=== PATIENT | female | born 1945 | race Caucasian/White ===

== ENCOUNTER 2020-09-24 14:13 | Emergency (ER) | payer MEDICARE, MEDICAID, SELFPAY ==
[2020-09-24] VITALS (8 sets, daily range): BP systolic 100–138; BP diastolic 45–75; PULSE 62–78; RESP 18–21; TEMP 36.5–37; O2SAT 95–99; BMI 37.8
--- NOTE | 2020-09-24 15:14 | HMH.EDUTC ---
[facility] [place] Disposition Clinical Impression: Weakness Disposition: Still a Patient Condition on Discharge: Fair Referrals: Yuliana Morales APRN [Primary Care Provider] - Medical Decision Making - Donte Inquiry Pt receiving controlled substance: No Donte was queried for this patient: No Vital Signs: 09/24/20 14:30 09/24/20 15:00 09/24/20 15:37 Temperature 97.7 F 98.2 F 98.6 F Temperature Source Oral Oral Oral Pulse Rate [Right Radial] 70 62 68 Respiratory Rate 18 21 18 Blood Pressure [Right Arm] 102/60 L 122/60 100/47 L Blood Pressure Mean [Right Arm] 74 80 64 Blood Pressure Source [Right Arm] Automatic Cuff Automatic Cuff Automatic Cuff Blood Pressure Position [Right Arm] Sitting Sitting Sitting 02 Sat by Pulse Oximetry 98 97 98 Oxygen Delivery Method Room Air Room Air Room Air 09/24/20 16:20 Temperature Temperature Source Pulse Rate [Right Radial] 65 Respiratory Rate Blood Pressure [Right Arm] 110/45 L Blood Pressure Mean [Right Arm] 66 Blood Pressure Source [Right Arm] Automatic Cuff Blood Pressure Position [Right Arm] Sitting 02 Sat by Pulse Oximetry 95 Oxygen Delivery Method Room Air - Lab Data Lab Results 09/24/20 15:45: VBG pH 7.30 L, VBG pCO2 53.6 H, VBG pO2 31.3, VBG HCO3 26.0, VBG Total CO2 27.7 H, VBG O2 Saturation 56.2, VBG Base Excess -0.3 09/24/20 16:03: WBC 10.1, RBC 4.49, Hgb 12.7, Hct 38.9, MCV 86.6, MCH 28.2, MCHC 32.5, RDW 13.7, Plt Count 352, MPV 8.2, Neut % (Auto) 67.8, Lymph % (Auto) 24.8, [place] % (Auto) 5.2, Eos % (Auto) 1.8, Baso % (Auto) 0.3, Neut # (Auto) 6.8, Lymph # (Auto) 2.5, [place] # (Auto) 0.5, Eos # (Auto) 0.2, Baso # (Auto) 0.0 09/24/20 16:03: Sodium 138, Potassium 4.4, Chloride 103, Carbon Dioxide 25, Anion Gap 14.4, BUN 22 H, Creatinine 0.70, Estimated Creat Clear 79, Estimated GFR 82, Est GFR ( Amer) 99, Glucose 108 H, Calcium 9.8, Total Bilirubin 0.5, AST 67 H, ALT 29, Alkaline Phosphatase 85, Total Protein 8.0, Albumin 4.2, Globulin 3.8 H, Albumin/Globulin Ratio 1.1 09/24/20 16:03: Lipase 110 09/24/20 16:03: SARS-CoV-2 IgG Ab (Rapid) Negative, SARS-CoV-2 IgM Ab (Rapid) Negative Result diagrams: 09/24/20 16:03 09/24/20 16:03 Orders (Tests/Meds): ED MEDICATIONS Discontinued Medications Generic Name Dose Route Start Last Admin Trade Name Freq PRN Reason Stop Dose Admin Sodium Chloride 1,000 mls @ 999 mls/hr 09/24/20 15:45 09/24/20 16:10 Sod Chlor 0.9% 1000ml Bag IV 09/24/20 16:45 999 mls/hr .Q1H1M BRIGHT Administration ORDERS Category Date Time Status CXR --portable [XR chest portable] Stat Exams 09/24/20 15:45 Taken Lactic Acid Stat Lab 09/24/20 15:44 Ordered UA [Urinalysis and Microscopic] Stat Lab 09/24/20 15:45 Ordered Medical Decision Narrative: Patient advised that her PCP had sent her to the ED for further evaluation, Spoke with Yuliana Morales and she advised that she wanted patient seen in the ED, states that patient has extensive Cardiac history and she wanted her to go the ED for further work up and evaluation. States that patient has been feeling weak and off for several days which is not her normal and has several heart blockages along with extensive cardiac history that is followed by [facility] in [place] States that she was seen in the Office yesterday and tried to transfer her to the ED then but she refused to go and today her blood pressure dropped multiple times at home and patient was feeling weak and off so she again advised the patient to go to the ED Patient was a triage for decision, called ED and advised them that patient was sent to ED by the PCP and wanted her seen in ED Patient moved back to ED room 11 [facility] [place] HPI - General Chief complaint: Weakness Stated complaint: back pain, feels bad in general Time Seen by Provider: 09/24/20 15:14 Mode of Arrival: Ambulatory Limitations: No Limitations Description of Symptoms (Recalled from Triage Doc. by RN): Weakness - History of Present Illness Provide
--- NOTE | 2020-09-24 15:45 | XR_ITS ---
PROCEDURE: XR CHEST PORTABLE CLINICAL HISTORY: cough COMPARISON: No exams were available for comparison FINDINGS: The cardiomediastinal silhouette and pulmonary vascularity are within normal limits. Patchy density is present in the right perihilar region may be due to an area of summation artifact or patchy infiltrate. No acute bony abnormalities. IMPRESSION: Possible patchy perihilar infiltrate on the right Dictated by: Kenji Infante MD 09/24/2020 16:51 Kenji Infante MD in [place] 09/24/2020 16:51
--- NOTE | 2020-09-24 15:46 | HMH.EDGENADL ---
ED Disposition Clinical Impression: Weakness, Viral syndrome Disposition: Home, Self-Care Condition on Discharge: Fair Instructions: DI for Viral Syndrome Additional Instructions: Please take all medications as prescribed. Follow-up with your primary care physician in 24 to 48 hours. Return to the emergency department for any new or worsening symptoms. Referrals: Yuliana Morales APRN [Primary Care Provider] - Time of Disposition: 18:09 - Critical Care Critical Care Time: No Attestation: On 09/24/20, the high probability of a clinically significant, sudden or life threatening deterioration of the following system(s) required my full and direct attention, intervention and personal management. The time I documented below is in addition to time spent performing reported procedures but includes the following listed in this critical care notation. Medical Decision Making - Medical Records Medical records reviewed: Yes: I reviewed the patient's medical records. - Donte Inquiry Pt receiving controlled substance: No Vital Signs: 09/24/20 14:30 09/24/20 15:00 09/24/20 15:37 Temperature 97.7 F 98.2 F 98.6 F Temperature Source Oral Oral Oral Pulse Rate [Right Radial] 70 62 68 Respiratory Rate 18 21 18 Blood Pressure [Right Arm] 102/60 L 122/60 100/47 L Blood Pressure Mean [Right Arm] 74 80 64 Blood Pressure Source [Right Arm] Automatic Cuff Automatic Cuff Automatic Cuff Blood Pressure Position [Right Arm] Sitting Sitting Sitting 02 Sat by Pulse Oximetry 98 97 98 Oxygen Delivery Method Room Air Room Air Room Air 09/24/20 16:20 09/24/20 17:46 09/24/20 18:07 Temperature Temperature Source Pulse Rate [Right Radial] 65 66 68 Respiratory Rate 18 Blood Pressure [Right Arm] 110/45 L 120/64 121/67 Blood Pressure Mean [Right Arm] 66 82 85 Blood Pressure Source [Right Arm] Automatic Cuff Automatic Cuff Automatic Cuff Blood Pressure Position [Right Arm] Sitting Sitting Sitting 02 Sat by Pulse Oximetry 95 99 97 Oxygen Delivery Method Room Air Room Air Room Air 09/24/20 18:39 Temperature Temperature Source Pulse Rate [Right Radial] 65 Respiratory Rate Blood Pressure [Right Arm] 116/51 L Blood Pressure Mean [Right Arm] 72 Blood Pressure Source [Right Arm] Automatic Cuff Blood Pressure Position [Right Arm] Sitting 02 Sat by Pulse Oximetry 97 Oxygen Delivery Method Room Air - Lab Data Lab Results 09/24/20 15:45: VBG pH 7.30 L, VBG pCO2 53.6 H, VBG pO2 31.3, VBG HCO3 26.0, VBG Total CO2 27.7 H, VBG O2 Saturation 56.2, VBG Base Excess -0.3 09/24/20 16:03: WBC 10.1, RBC 4.49, Hgb 12.7, Hct 38.9, MCV 86.6, MCH 28.2, MCHC 32.5, RDW 13.7, Plt Count 352, MPV 8.2, Neut % (Auto) 67.8, Lymph % (Auto) 24.8, [place] % (Auto) 5.2, Eos % (Auto) 1.8, Baso % (Auto) 0.3, Neut # (Auto) 6.8, Lymph # (Auto) 2.5, [place] # (Auto) 0.5, Eos # (Auto) 0.2, Baso # (Auto) 0.0 09/24/20 16:03: Sodium 138, Potassium 4.4, Chloride 103, Carbon Dioxide 25, Anion Gap 14.4, BUN 22 H, Creatinine 0.70, Estimated Creat Clear 79, Estimated GFR 82, Est GFR ( Amer) 99, Glucose 108 H, Calcium 9.8, Total Bilirubin 0.5, AST 67 H, ALT 29, Alkaline Phosphatase 85, Total Protein 8.0, Albumin 4.2, Globulin 3.8 H, Albumin/Globulin Ratio 1.1 09/24/20 16:03: Lipase 110 09/24/20 16:03: SARS-CoV-2 IgG Ab (Rapid) Negative, SARS-CoV-2 IgM Ab (Rapid) Negative 09/24/20 17:11: Urine Color Yellow, Urine Appearance Sl cloudy, Urine pH 5.5, Ur Specific [place] 1.015, Urine Protein Negative, Urine Glucose (UA) Negative, Urine Ketones Negative, Urine Blood Negative, Urine Nitrate Positive, Urine Bilirubin Negative, Urine Urobilinogen 0.2, Ur Leukocyte Esterase Negative, Urine WBC 3-5, Ur Squamous Epith Cells 3-5, Urine Bacteria 4+ Result diagrams: 09/24/20 16:03 09/24/20 16:03 Orders (Tests/Meds): ED MEDICATIONS Discontinued Medications Generic Name Dose Route Start Last Admin Trade Name Freq PRN Reason Stop Dose Admin Sodium Chloride 1,000 mls @ 999 mls
[2020-09-24 16:23] LABS: Basophils % 0.3 % (0.1-2.0); Eosinophils # 0.2 K/mm3 (0.0-0.4); Eosinophils % 1.8 % (0.1-12.0); Hematocrit 38.9 % (37.0-47.0); Hemoglobin 12.7 g/dL (12.2-16.2); Lymphocytes # 2.5 K/mm3 (0.7-4.5); Lymphocytes % 24.8 % (10-50); Mean Corpuscular HGB Conc 32.5 g/dL (31.8-35.4); Mean Corpuscular Hemoglobin 28.2 pg (27.0-31.2); Mean Corpuscular Volume 86.6 fl (81-99); Mean Platelet Volume 8.2 fl (7.4-10.4); Monocytes # 0.5 K/mm3 (0.1-1.0); Monocytes % 5.2 % (1.7-9.3); Neutrophils # 6.8 K/mm3 (1.8-7.8); Neutrophils % 67.8 % (37.0-80.0); Platelet Count 352 K/mm3 (142-424); Red Blood Count 4.49 M/mm3 (4.20-5.40); Red Cell Distribution Width 13.7 % (11.5-17.5); White Blood Count 10.1 K/mm3 (4.8-10.8)
[2020-09-24 16:34] LABS: Alanine Aminotransferase 29 U/L (12-78); Albumin Level 4.2 g/dl (3.5-5.0); Albumin/Globulin Ratio 1.1 (1.1-1.8); Alkaline Phosphatase 85 U/L (38-126); Anion Gap 14.4 mEq/L (5-15); Aspartate Amino Transferase 67 U/L (14-36); Bilirubin,Total 0.5 mg/dl (0.2-1.3); Blood Urea Nitrogen 22 mg/dl (7-17); Calcium 9.8 mg/dl (8.4-10.2); Carbon Dioxide 25 mmol/L (22.0-30.0); Chloride 103 mmol/L (98-107); Creatinine Clearance Estimated 79 mL/min (50-200); Estimated Glomerular Filt Rate 82 ml/min (>60); GFR (African American) 99 ML/MIN (>60); Globulin 3.8 g/dL (1.3-3.2); Glucose 108 mg/dl (74-100); Lipase 110 U/L (23-300); Potassium 4.4 mmoL/L (3.5-5.1); Sodium 138 mmol/L (136-145)
[2020-09-24 16:35] LABS: VBG Base Excess -0.3 mmol/L (-2.4-2.3); VBG Oxygen Saturation 56.2 % (50-70); VBG PO2 31.3 mmol/L (28-40); VBG Total CO2 27.7 mmol/L (23-27)
[2020-09-24 16:37] LABS: VBG PCO2 53.6 mmol/L (35-51)
[2020-09-24 16:47] LABS: Coronavirus 19 IgG Antibody Negative (Negative); Coronavirus 19 IgM Antibody Negative (Negative)
[2020-09-24 17:50] LABS: Microscopic, Urine URINE MICROSCOPIC (MICROSCOPIC)
[2020-09-24 18:03] LABS: Appearance,Urine SL CLOUDY (Clear); Bilirubin,Urine Negative (Negative); Blood, Urine Negative (Negative); Color,Urine YELLOW (Yellow); Glucose,Urine (UA) Negative (Negative); Ketones,Urine Negative (Negative); Leukocyte Esterase,Urine Negative (Negative); Nitrate,Urine POSITIVE (Negative); PH,Urine 5.5 (5.0-8.5); Protein,Urine Negative (Negative); Specific Gravity, Urine 1.015 (1.005-1.030); Urobilinogen,Urine 0.2 EU/dl (0.2)
--- NOTE | 2020-09-24 18:07 | ECG_ITS ---
APPROVED REPORT Exam: Resting ECG HR:72 bpm ECG Measurements Heart Rate 72 AXES QRSd 102 QRS -15 QT 416 T 46 QTc 455 Conclusion Atrial fibrillation Minimal voltage criteria for LVH, may be normal variant Abnormal ECG Electronically signed by : Tomer Vaughn, 09/25/2020 07:16:59
[2020-09-24 18:17] LABS: Bacteria,Urine 4+ /lpf
== END 2020-09-24 18:59 | disposition home or self-care (01) ==
LOC: ER 14:30 → UTC 14:31 → ER 15:31
PROVIDERS: Emergency Medicine; Emergency Provider Nurse Practitioner; PCP Nurse Practitioner Family
DX: B34.9 Viral infection, unspecified (principal); I48.91 Unspecified atrial fibrillation; I10 Essential (primary) hypertension; E11.65 Type 2 diabetes mellitus with hyperglycemia; Z01.84 Encounter for antibody response examination; Z88.0 Allergy status to penicillin; Z79.899 Other long term (current) drug therapy
CPT/HCPCS: 71045; 80053; 81001; 82803; 83690; 85025; 86328; 87086; 87088; 87186; 93005; 96365; 99283

== ENCOUNTER 2020-12-24 10:29 | Emergency (ER) | payer MEDICARE, MEDICAID, SELFPAY ==
[2020-12-24 10:35] VITALS: BP 103/66; PULSE 75; O2SAT 96
--- NOTE | 2020-12-24 10:38 | CA_ITS ---
APPROVED REPORT Bilateral Lower Extremity Venous Study for Customer Service Coordinator: MARÍA augustin,MICHELLES Indications calf pain, foot pain Risk Factors Obesity Vein Imaging CFV (L): compressive, spontaneous, phasic, augmentation FEM (L): compressive, spontaneous, phasic, augmentation POP (L): compressive, spontaneous, phasic, augmentation PTV (L): compressive, spontaneous, phasic, augmentation GSV (L): compressive, spontaneous, phasic, augmentation SSV (L): compressive, spontaneous, phasic, augmentation Peroneals (L):compressive, spontaneous, phasic, augmentation GAS (L): compressive, spontaneous, phasic, augmentation Findings Color flow duplex demonstrates no evidence of DVT of the following left lower extremity Veins:Common Femoral Vein, Femoral Vein, Popliteal Vein, Posterior Tibial Veins, Peroneal Veins. Conclusion Color flow duplex demonstrates no evidence of DVT of the following left lower extremity Veins:Common Femoral Vein, Femoral Vein, Popliteal Vein, Posterior Tibial Veins, Peroneal Veins. Electronically signed by : Kenji Infante MD 12/24/2020 16:40:01
[2020-12-24 10:45] VITALS: RESP 14; TEMP 36.9; O2SAT 97; BMI 39.4
--- NOTE | 2020-12-24 10:45 | CT_ITS ---
Procedure: CT ANGIO ABDOMEN/FEMORAL CLINICAL HISTORY: pain, cold left foot Left foot pain swelling redness and cold to COMPARISON: No exams were available for comparison TECHNIQUE: IV Contrast: 100ml Isovue 370 Axial images obtained with sagittal and coronal reformats. All CT scans at the facility use one or more dose reduction, viz: automated exposure control, ma/kV adjustment per patient size (including targeted exams where dose is matched to indication, i.e. head), or iterative reconstruction technique. FINDINGS: Abdominal aorta and branches: Atherosclerotic changes the celiac artery and its branches as well as the SMA. At least 50 percent stenosis of the ostium of the right renal artery. There is a circum aortic left renal vein. No evidence of aortic aneurysm. There is mild dilatation of the right common iliac artery at 1.5 cm. No significant iliac artery stenosis. Lower extremity runoff: Medial calcinosis of the common femoral and femoral arteries on both sides. No significant stenotic lesions evident. The lower extremities distal to the popliteal arteries with not well opacified on the initial run. Delayed images were obtained through this area showing better but not optimal opacification. Dense calcific plaque is present in the right anterior tibial artery with occlusion of the mid aspect of the right anterior tib. The peroneal and posterior tibial artery are patent to the ankle on the right. On the left side there is occlusion of the proximal aspect of the anterior tib. The peroneal and posterior tibial artery are patent to the ankle. The feet arches and distal digital arteries are not opacified. There is an indeterminate 2.4 cm area of enhancement in the mid aspect of the right hepatic lobe series 4, image 15-19. Pancreatic atrophy is noted. There is severe calcification of the splenic and hepatic arteries. Senescent calcifications noted of the uterus. Fatty infiltration noted involving the muscles of the lower extremities IMPRESSION: 1. No evidence of high-grade stenosis, occlusion or thrombus involving the aorta, iliac arteries, common femoral arteries, femoral or popliteal arteries. 2. Poor opacification of the runoff vessels below the knee. There is occlusion of the anterior tibial arteries on both sides. The peroneal and posterior tibial arteries are patent to the ankle. The vascular arches of the feet are not opacified possibly due to the slow flow within the lower extremities.. Dictated by: Kenji Infante MD 12/24/2020 14:00 Kenji Infante MD in [place] 12/24/2020 14:00
--- NOTE | 2020-12-24 10:46 | HMH.EDGENADL ---
ED Disposition Clinical Impression: Peripheral arterial disease Disposition: Home, Self-Care Condition on Discharge: Fair Instructions: DI for Peripheral Vascular (Arterial) Disease Additional Instructions: You have been evaluated for foot pain, diagnosed with peripheral vascular disease. You have stenosis and occlusion of multiple vessels in both of your lower legs. There does not appear to be one large blockage. It is very important to continue taking Plavix and other medications. Follow-up with a vascular surgeon as soon as available. Follow-up with your primary care doctor within 24 to 48 hours. Scheduling for [facility] [phone] Will need to bring copy of the disk for the CT performed today. Call Psych[facility] radiology for a copy. Return to the emergency department at once if you have any new or worsening pain, cold sensation in your feet, color changes of your toes, any other concerns Referrals: Yuliana Morales APRN [Primary Care Provider] - Time of Disposition: 14:15 - Critical Care Critical Care Time: No Attestation: On 12/24/20, the high probability of a clinically significant, sudden or life threatening deterioration of the following system(s) required my full and direct attention, intervention and personal management. The time I documented below is in addition to time spent performing reported procedures but includes the following listed in this critical care notation. Medical Decision Making - Medical Records Medical records reviewed: Yes: I reviewed the patient's medical records. - Donte Inquiry Pt receiving controlled substance: No Vital Signs: 12/24/20 10:35 12/24/20 10:45 12/24/20 11:01 Temperature 98.4 F Temperature Source Oral Pulse Rate 75 80 Respiratory Rate 14 Blood Pressure 103/66 L 119/68 Blood Pressure Mean 88 85 Blood Pressure Source Blood Pressure Position 02 Sat by Pulse Oximetry 96 97 96 Oxygen Delivery Method Room Air 12/24/20 11:39 Temperature Temperature Source Pulse Rate 81 Respiratory Rate 20 Blood Pressure 163/76 H Blood Pressure Mean 88 Blood Pressure Source Automatic Cuff Blood Pressure Position Sitting 02 Sat by Pulse Oximetry 97 Oxygen Delivery Method Room Air - Lab Data Lab Results 12/24/20 12:10: WBC 9.6, RBC 4.67, Hgb 12.3, Hct 38.7, MCV 83.0, MCH 26.3 L, MCHC 31.7 L, RDW 15.0, Plt Count 315, MPV 7.7, Neut % (Auto) 65.0, Lymph % (Auto) 27.5, [place] % (Auto) 4.5, Eos % (Auto) 2.5, Baso % (Auto) 0.5, Neut # (Auto) 6.3, Lymph # (Auto) 2.7, [place] # (Auto) 0.4, Eos # (Auto) 0.2, Baso # (Auto) 0.1 12/24/20 12:10: PT 14.0 H, INR 1.20 H 12/24/20 12:10: Sodium 139, Potassium 4.1, Chloride 105, Carbon Dioxide 25, Anion Gap 13.1, BUN 12, Creatinine 0.60, Estimated Creat Clear 83, Estimated GFR 98, Est GFR ( Amer) 119, Glucose 139 H, Calcium 9.7, Total Bilirubin 0.3, AST 51 H, ALT 22, Alkaline Phosphatase 96, Total Protein 8.3 H, Albumin 4.5, Globulin 3.8 H, Albumin/Globulin Ratio 1.2 12/24/20 13:30: Lactate 0.8 Result diagrams: 12/24/20 12:10 12/24/20 12:10 Orders (Tests/Meds): ED MEDICATIONS Discontinued Medications Generic Name Dose Route Start Last Admin Trade Name Freq PRN Reason Stop Dose Admin Iopamidol 100 ml 12/24/20 13:25 12/24/20 13:27 Iopamidol-370 (76%);100ml Bottle IV 12/24/20 13:26 100 ml ONCE ONE Administration Iopamidol 20 ml 12/24/20 13:25 12/24/20 13:27 Iopamidol-370 (76%); 50ml Vial IV 12/24/20 13:26 20 ml ONCE ONE Administration Sodium Chloride 50 ml 12/24/20 13:25 12/24/20 13:26 0.9 % Sodium Chloride 50 Ml Vial IV 12/24/20 13:26 50 ml ONCE ONE Administration Sodium Chloride 10 ml 12/24/20 13:25 12/24/20 13:27 Sodium Chloride 0.9% 10ml Syr (Rad Only) IV 12/24/20 13:26 10 ml ONCE ONE Administration Sodium Chloride 50 ml 12/24/20 13:26 12/24/20 13:27 0.9 % Sodium Chloride 50 Ml Vial IV 12/24/20 13:27 50 ml ONCE O
[2020-12-24 11:01] VITALS: BP 119/68; PULSE 80; O2SAT 96
--- NOTE | 2020-12-24 11:16 | PC.NURSE ---
pt to rad.
--- NOTE | 2020-12-24 11:22 | PC.NURSE ---
pt returning from rad.
[2020-12-24 11:39] VITALS: BP 163/76; PULSE 78; PULSE 81; RESP 20; O2SAT 96; O2SAT 97
--- NOTE | 2020-12-24 12:11 | PC.NURSE ---
20G IV placed in LAC, labs drawn at this time.
[2020-12-24 12:22] LABS: Basophils # 0.1 K/mm3 (0-0.2); Basophils % 0.5 % (0.1-2.0); Eosinophils # 0.2 K/mm3 (0.0-0.4); Eosinophils % 2.5 % (0.1-12.0); Hematocrit 38.7 % (37.0-47.0); Hemoglobin 12.3 g/dL (12.2-16.2); Lymphocytes # 2.7 K/mm3 (0.7-4.5); Lymphocytes % 27.5 % (10-50); Mean Corpuscular HGB Conc 31.7 g/dL (31.8-35.4); Mean Corpuscular Hemoglobin 26.3 pg (27.0-31.2); Mean Platelet Volume 7.7 fl (7.4-10.4); Monocytes # 0.4 K/mm3 (0.1-1.0); Monocytes % 4.5 % (1.7-9.3); Neutrophils # 6.3 K/mm3 (1.8-7.8); Platelet Count 315 K/mm3 (142-424); Red Blood Count 4.67 M/mm3 (4.20-5.40); White Blood Count 9.6 K/mm3 (4.8-10.8)
[2020-12-24 12:42] LABS: Alanine Aminotransferase 22 U/L (12-78); Albumin Level 4.5 g/dl (3.5-5.0); Albumin/Globulin Ratio 1.2 (1.1-1.8); Alkaline Phosphatase 96 U/L (38-126); Anion Gap 13.1 mEq/L (5-15); Aspartate Amino Transferase 51 U/L (14-36); Bilirubin,Total 0.3 mg/dl (0.2-1.3); Blood Urea Nitrogen 12 mg/dl (7-17); Calcium 9.7 mg/dl (8.4-10.2); Carbon Dioxide 25 mmol/L (22.0-30.0); Chloride 105 mmol/L (98-107); Creatinine Clearance Estimated 83 mL/min (50-200); Estimated Glomerular Filt Rate 98 ml/min (>60); GFR (African American) 119 ML/MIN (>60); Globulin 3.8 g/dL (1.3-3.2); Glucose 139 mg/dl (74-100); Potassium 4.1 mmoL/L (3.5-5.1); Sodium 139 mmol/L (136-145); Total Protein,Serum 8.3 g/dl (6.3-8.2)
--- NOTE | 2020-12-24 13:08 | PC.NURSE ---
pt gone to rad at this time.
--- NOTE | 2020-12-24 13:46 | PC.NURSE ---
MD at bedside updating patient on current results.
[2020-12-24 13:52] LABS: Lactic Acid 0.8 mmol/L (0.7-2.1)
[2020-12-24 15:02] VITALS: BP 157/71; PULSE 76; RESP 18; TEMP 37; O2SAT 96
== END 2020-12-24 15:03 | disposition home or self-care (01) ==
PROVIDERS: Emergency Provider Emergency Medicine; PCP Nurse Practitioner Family
DX: I73.89 Other specified peripheral vascular diseases (principal); R09.89 Other specified symptoms and signs involving the circulatory and respiratory systems; I25.10 Atherosclerotic heart disease of native coronary artery without angina pectoris; I10 Essential (primary) hypertension; E11.40 Type 2 diabetes mellitus with diabetic neuropathy, unspecified; I48.91 Unspecified atrial fibrillation; Z88.0 Allergy status to penicillin; Z79.899 Other long term (current) drug therapy; E78.5 Hyperlipidemia, unspecified
CPT/HCPCS: 75635; 80053; 83605; 85025; 85610; 93971; 99282; Q9967

== ENCOUNTER 2021-07-17 09:48 | Emergency (ER) | payer MEDICARE, MEDICAID, SELFPAY ==
[2021-07-17 09:50] VITALS: BP 126/96; PULSE 93; RESP 14; TEMP 36.8; O2SAT 98; BMI 37.8
--- NOTE | 2021-07-17 10:08 | HMH.EDGENADL ---
ED Disposition Clinical Impression: Abrasion Contusion Qualifiers: Encounter type: initial encounter Contusion area: lower leg Laterality: right Qualified Code(s): S80.11XA - Contusion of right lower leg, initial encounter Disposition: Home, Self-Care Condition on Discharge: Good Additional Instructions: Home medications as directed. Follow-up PCP 3 to 4 days. Return to emergency room for chest pain, shortness of breath, headache, confusion. Referrals: Yuliana Morales APRN [Primary Care Provider] - 3 days Time of Disposition: 10:11 - Critical Care Critical Care Time: No Attestation: On 07/17/21, the high probability of a clinically significant, sudden or life threatening deterioration of the following system(s) required my full and direct attention, intervention and personal management. The time I documented below is in addition to time spent performing reported procedures but includes the following listed in this critical care notation. Medical Decision Making - Medical Records Medical records reviewed: Yes: I reviewed the patient's medical records. - Donte Inquiry Pt receiving controlled substance: No Medical Decision Narrative: Patient evaluated out of family concern for possible DVT. Patient in no acute distress initial evaluation. She is been ambulatory without difficulty since the fall. She denies head strike or LOC. All the patient's wounds are superficial. Discussed clinical signs and symptoms of DVT. Patient has none of those at this time. She is appropriate and stable for discharge home. General Adult HPI - General Stated complaint: AO 1027 fall, left knee and right leg pain Time Seen by Provider: 07/17/21 10:08 Mode of Arrival: Ambulatory - History of Present Illness HPI narrative: 76yo F with past medical history of diabetes presents emergency department secondary to a fall yesterday. Patient reports her daughter is concerned for possible blood clots. Patient reports she has severe neuropathy and did not lift her leg high enough going up the stairs. She fell and has injuries to her right mid tibia and her left knee. She is been ambulatory since that time without difficulty. She denies history of blood clot. She reports taking multiple blood thinning medications as prescribed by her doctor. - Related Data Home Medications Medication Instructions Recorded Confirmed atorvastatin 40 mg tablet 40 mg PO tab 05/30/20 05/30/20 clopidogrel 75 mg tablet 75 mg PO tab 05/30/20 05/30/20 diclofenac sodium 75 mg PO 05/30/20 05/30/20 tablet,delayed release folic acid 1 mg tablet 1 mg PO tab 05/30/20 05/30/20 glipizide 10 mg tablet, extended ea PO 05/30/20 05/30/20 release 24 hr insulin glargine 100 unit/mL (3 ml SQ 05/30/20 05/30/20 mL) subcutaneous pen losartan 25 mg tablet 25 mg PO tab 05/30/20 05/30/20 metformin 1,000 mg 24 hr mg PO 05/30/20 05/30/20 tablet,extended release naproxen 250 mg tablet 250 mg PO tab 05/30/20 05/30/20 pantoprazole 40 mg tablet,delayed PO 05/30/20 05/30/20 release paroxetine HCl 40 mg tablet mg PO 05/30/20 05/30/20 pen needle, diabetic 31 gauge x See Rx Instructions .ROUTE 05/30/20 05/30/2016 .MEDSUPPLY #30 each sotalol 80 mg tablet 80 mg PO tab 05/30/20 05/30/20 Previous Rx's Medication Instructions Recorded gentamicin 0.1 % topical ointment 1 applic TOPICAL BID #30 g 05/30/20 Allergies Allergy/AdvReac Type Severity Reaction Status Date / Time Penicillins Allergy Verified 05/30/20 13:35 [facility] History - Hepatitis A Screen Drug use history?: No Attestation statement:: This patient has been screened for Hepatitis A risk factors. I have reviewed the patient's past medical history: Yes Medical History: Reports:: Atrial Fibrillation, Diabetes Mellitus Type 2, Hypertension Laterality Cases: Bilateral: Tonsillectomy Other Surgeries: Yes: Tubal Ligation, Other Comment: heart cath, and stents. - Social History Smoking St
[2021-07-17 11:46] VITALS: BP 124/94; PULSE 90; RESP 14; TEMP 36.8; O2SAT 98
== END 2021-07-17 11:47 | disposition home or self-care (01) ==
PROVIDERS: Emergency Provider Family Medicine; PCP Nurse Practitioner Family
DX: S80.11XA Contusion of right lower leg, initial encounter (principal); W01.0XXA Fall on same level from slipping, tripping and stumbling without subsequent striking against object, initial encounter; Y92.019 Unspecified place in single-family (private) house as the place of occurrence of the external cause; E11.9 Type 2 diabetes mellitus without complications; I10 Essential (primary) hypertension; I48.91 Unspecified atrial fibrillation; Z79.01 Long term (current) use of anticoagulants; Z79.899 Other long term (current) drug therapy
CPT/HCPCS: 99281

== ENCOUNTER → 2022-09-07 06:25 | Outpatient (CLI) | payer MEDICARE, MEDICAID, SELFPAY ==
[2022-09-07 20:25] LABS: Basophils % 0.5 % (0.1-2.0); Eosinophils # 0.1 K/mm3 (0.0-0.4); Eosinophils % 1.3 % (0.1-12.0); Hematocrit 43.2 % (37.0-47.0); Hemoglobin 14.1 g/dL (12.2-16.2); Lymphocytes # 1.6 K/mm3 (0.7-4.5); Lymphocytes % 19.7 % (10-50); Mean Corpuscular HGB Conc 32.6 g/dL (31.8-35.4); Mean Corpuscular Hemoglobin 29.6 pg (27.0-31.2); Mean Corpuscular Volume 90.8 fl (81-99); Mean Platelet Volume 9.4 fl (7.4-10.4); Monocytes # 0.7 K/mm3 (0.1-1.0); Monocytes % 8.2 % (1.7-9.3); Neutrophils # 5.7 K/mm3 (1.8-7.8); Neutrophils % 70.3 % (37.0-80.0); Platelet Count 258 K/mm3 (142-424); Red Blood Count 4.76 M/mm3 (4.20-5.40); Red Cell Distribution Width 14.3 % (11.5-17.5); White Blood Count 8.1 K/mm3 (4.8-10.8)
[2022-09-07 20:36] LABS: Blood Urea Nitrogen 13 mg/dl (7-17); Calcium 9.6 mg/dl (8.4-10.2); Carbon Dioxide 28 mmol/L (22.0-30.0); Chloride 101 mmol/L (98-107); Estimated Glomerular Filt Rate 70 ml/min (>60); GFR (African American) 85 ML/MIN (>60); Glucose 166 mg/dl (74-100); Sodium 137 mmol/L (136-145)
[2022-09-07 21:43] LABS: Anion Gap 12.4 mEq/L (5-15); Potassium 4.4 mmoL/L (3.5-5.1)
== END ==
PROVIDERS: PCP Family Medicine; Visit Provider Family Medicine
DX: I10 Essential (primary) hypertension (principal); R30.0 Dysuria; B96.29 Other Escherichia coli [E. coli] as the cause of diseases classified elsewhere
CPT/HCPCS: 80048; 85025; 87086; 87088; 87186

== ENCOUNTER 2023-05-16 16:20 | Observation (INO) | payer MEDICARE, MEDICAID, SELFPAY ==
[2023-05-16] VITALS (10 sets, daily range): BP systolic 131–193; BP diastolic 58–102; PULSE 83–96; RESP 14–18; TEMP 36.1–37.2; O2SAT 91–99; BMI 27.4; BMI 26.7
--- NOTE | 2023-05-16 16:31 | PC.NURSE ---
DR GALAVIZ AT BEDSIDE
--- NOTE | 2023-05-16 16:33 | CT_ITS ---
PROCEDURE INFORMATION: Exam: CT Thoracic Spine Without Contrast Exam date and time: 05/16/2023 5:12 PM Age: 78 years old Clinical indication: Injury or trauma; Fall; Blunt trauma (contusions or hematomas); Additional info: Midline back pain rad to L side, severe TECHNIQUE: Imaging protocol: Computed tomography of the thoracic spine without contrast. Radiation optimization: All CT scans at this facility use at least one of these dose optimization techniques: automated exposure control; mA and/or kV adjustment per patient size (includes targeted exams where dose is matched to clinical indication); or iterative reconstruction. REPORTING DATA: Count of CT and Cardiac NM exams in prior 12 months: This patient has received 0 known CTs and 0 known cardiac nuclear medicine studies in the 12 months prior to the current study. COMPARISON: CT ANGIO ABDOMEN/FEMORAL 12/24/2020 1:04 PM FINDINGS: Bones/joints: There is slight partial compression with faint fracture lines of the superior endplate of T11. Bony retropulsion produces mild central canal stenosis at T11. No other vertebral body compression or acute fracture. Moderate multilevel degenerative disc changes noted. Osseous alignment is normal. Soft tissues: Unremarkable. IMPRESSION: Acute appearing slight compression fracture of T11 with mild associated spinal stenosis.
--- NOTE | 2023-05-16 16:33 | ECG_ITS ---
APPROVED REPORT Exam: Resting ECG HR:89 bpm ECG Measurements Heart Rate 89 AXES PA 162 P 267 QRSd 104 QRS -8 QT 343 T 77 QTc 390 Conclusion SINUS RHYTHM NONSPECIFIC T-WAVE ABNORMALITY BORDERLINE ECG UNCONFIRMED REPORT Electronically signed by : Tomer Vaughn MD 05/18/2023 17:24:16
--- NOTE | 2023-05-16 16:33 | CT_ITS ---
PROCEDURE INFORMATION: Exam: CT Pelvis Without Contrast; Skeletal Exam date and time: 05/16/2023 5:18 PM Age: 78 years old Clinical indication: Hip pain; Bilateral; Additional info: Midline back pain rad to L side, severe TECHNIQUE: Imaging protocol: Computed tomography of the pelvis without contrast. Exam focused on the skeleton. Radiation optimization: All CT scans at this facility use at least one of these dose optimization techniques: automated exposure control; mA and/or kV adjustment per patient size (includes targeted exams where dose is matched to clinical indication); or iterative reconstruction. REPORTING DATA: Count of CT and Cardiac NM exams in prior 12 months: This patient has received 0 known CTs and 0 known cardiac nuclear medicine studies in the 12 months prior to the current study. COMPARISON: CT LUMBAR SPINE WO CON 05/16/2023 5:16 PM FINDINGS: Vasculature: Moderate atherosclerotic calcification in the bilateral iliac arteries. Bones/joints: Moderate degenerative changes in the lower lumbar spine. Mild degenerative changes throughout the bony pelvis. Osseous alignment is normal. No acute fracture. Soft tissues: Unremarkable. IMPRESSION: Chronic osseous and atherosclerotic changes as described. No acute abnormality evident.
--- NOTE | 2023-05-16 16:33 | CT_ITS ---
PROCEDURE INFORMATION: Exam: CT Lumbar Spine Without Contrast Exam date and time: 05/16/2023 5:16 PM Age: 78 years old Clinical indication: Injury or trauma; Fall; Blunt trauma (contusions or hematomas); Additional info: Midline back pain rad to L side, severe TECHNIQUE: Imaging protocol: Computed tomography of the lumbar spine without contrast. Radiation optimization: All CT scans at this facility use at least one of these dose optimization techniques: automated exposure control; mA and/or kV adjustment per patient size (includes targeted exams where dose is matched to clinical indication); or iterative reconstruction. REPORTING DATA: Count of CT and Cardiac NM exams in prior 12 months: This patient has received 0 known CTs and 0 known cardiac nuclear medicine studies in the 12 months prior to the current study. COMPARISON: CT THORACIC SPINE WO CON 05/16/2023 5:12 PM FINDINGS: Bones/joints: Slight compression fracture of T11 as described in the thoracic spine CT dictation. Lumbar vertebrae appear normally aligned with no lumbar vertebral body compression or acute fracture. Lumbar disc spaces are well-maintained. Mild multilevel uncovertebral spurring throughout the lower lumbar spine. Mild degenerative changes noted in the sacroiliac joints. Vasculature: Moderate scattered atherosclerotic calcification. Soft tissues: Unremarkable. IMPRESSION: Slight acute compression fracture of T11. Otherwise chronic findings as noted.
--- NOTE | 2023-05-16 16:33 | CT_ITS ---
PROCEDURE INFORMATION: Exam: CTA Abdomen and Pelvis With Contrast Exam date and time: 05/16/2023 5:21 PM Age: 78 years old Clinical indication: Other: Mid back pain going to left side; Additional info: Midline back pain rad to L side, severe TECHNIQUE: Imaging protocol: Computed tomographic angiography of the abdomen and pelvis with contrast. Exam focused on the arteries. 3D rendering (Not supervised by radiologist): MIP and/or 3D reconstructed images were created by the technologist. Radiation optimization: All CT scans at this facility use at least one of these dose optimization techniques: automated exposure control; mA and/or kV adjustment per patient size (includes targeted exams where dose is matched to clinical indication); or iterative reconstruction. Contrast material: ISOVUE 370; Contrast volume: 100 ml; Contrast route: INTRAVENOUS (IV); REPORTING DATA: Count of CT and Cardiac NM exams in prior 12 months: This patient has received 0 known CTs and 0 known cardiac nuclear medicine studies in the 12 months prior to the current study. COMPARISON: CT ANGIO ABDOMEN/FEMORAL 12/24/2020 1:04 PM FINDINGS: Aorta: Moderate atherosclerotic calcification throughout the aorta. No evidence of aneurysm or dissection. Celiac trunk and mesenteric arteries: Moderate stenosis of the origin of the celiac artery. Moderate stenosis of the origin of the superior mesenteric artery. Renal arteries: Mild atherosclerotic stenosis of the origin of the left renal artery. Moderate atherosclerotic stenosis of the origin of the right renal artery. Right iliac arteries: Slight fusiform dilation of the right common iliac artery measuring maximum diameter of 1.5 cm. Mild diffuse atherosclerotic calcification throughout the right iliac arteries. No stenosis or occlusion. Left iliac arteries: No occlusion or significant stenosis. Liver: There are peripherally enhancing fluid density lesions in the right lobe of the liver, 1 just lateral and caudad to the gallbladder fossa and another slightly posterior in the right lobe. The larger, elongated lesion measures 5.5 x 1.9 x 1.5 cm. The smaller more posterior lesion measures 3.3 x 2.0 x 2.7 cm. A few smaller peripherally enhancing low-density lesions are noted in the posterior dome of the liver (axial images 30-40). A few smaller enhancing lesions noted in segment 5. Gallbladder and bile ducts: Gallbladder is surgically absent. Pancreas: Unremarkable. No mass. No ductal dilation. Spleen: Unremarkable. No splenomegaly. Adrenal glands: Unremarkable. No mass. Kidneys and ureters: Unremarkable. No solid mass. No hydronephrosis. Stomach and bowel: Unremarkable. No obstruction. No mucosal thickening. Appendix: No evidence of appendicitis. Intraperitoneal space: Unremarkable. No free air. No significant fluid collection. Lymph nodes: Unremarkable. No enlarged lymph nodes. Urinary bladder: Unremarkable. No mass. Reproductive: Unremarkable as visualized. Bones/joints: Slight depression of the superior endplate of T11 with faint apparent fracture lines. No other findings suspicious for acute fracture. Soft tissues: Unremarkable. IMPRESSION: 1. Slight compression fracture of T11. No other posttraumatic changes evident. 2. Multiple peripherally enhancing and nodular enhancing lesions throughout the right lobe of the liver. Patient reportedly gives history of liver cancer . Therefore, differential diagnosis would include metastatic disease and liver abscesses as most likely etiologies. These do not have typical appearance of acute liver lacerations. 3. Moderate diffuse atherosclerotic disease as described. Findings were discussed with Shae Dean at 05/16/2023 6:21 PM EDT. Electronically signed by Gonsalo
[2023-05-16 16:50] LABS: Chloride 104 mmol/L (98-107); Potassium 4.2 mmoL/L (3.5-5.1); Sodium 140 mmol/L (136-145)
--- NOTE | 2023-05-16 16:51 | HMH.EDGENADL ---
Discharge Plan Disposition Patient Disposition: Admitted Condition: Good Clinical Impressions Clinical Impression: Closed fracture of T11 vertebra, Intractable back pain, Liver masses Discharge ED Provider: Shae Dean General Adult HPI General Chief complaint: Back Pain/Injury Stated complaint: Pain Time Seen by Provider: 05/16/23 16:30 Mode of Arrival: Wheelchair Source of Information: Patient Limitations: No Limitations Description of Symptoms (Recalled from ER Triage Doc. by RN): PT C/O ONGOING LEFT SIDED LOW BACK PAIN AFTER A FALL 4 WEEKS AGO. History of Present Illness HPI narrative: This patient is a 78-year-old female with a history of peripheral arterial disease, type 2 diabetes, and liver cancer status post 1 treatment in January presenting to the emergency department for evaluation with concern for low back pain radiating to her left flank since a fall that happened approximately 4 weeks ago. She states that the pain is pretty much constant, and she can only get relief whenever she positions her self in certain ways. It is worse with any sort of movement. It is severe and sharp. No medications make it better. She states she has been evaluated at [facility] twice and had CT scans, which were negative. The pain has been persistent and she arrives today in tears and diaphoretic from the pain. On review of systems, patient does admit to nausea and vomiting when the pain is severe and she also admits to constipation. No recent falls and no other concerns noted at this time, such as fevers, chills, chest pain, shortness of breath, dysuria, hematuria, polyuria, numbness, tingling, saddle anesthesia, incontinence, or other concerns. Related Data Home Medications Medication Instructions Recorded Confirmed clopidogrel 75 mg tablet 75 mg PO 05/30/20 09/07/22 folic acid 1 mg tablet 1 mg PO 05/30/20 09/07/22 glipizide 10 mg tablet, extended ea PO 05/30/20 09/07/22 release 24 hr paroxetine HCl 40 mg tablet mg PO 05/30/20 09/07/22 pen needle, diabetic 31 gauge x #30 ea 05/30/20 09/07/2212/03 cholecalciferol (vitamin D3) 50 2,000 unit PO DAILY 09/07/22 09/07/22 mcg (2,000 unit) capsule diclofenac sodium 75 mg 75 mg PO BID 09/07/22 09/07/22 tablet,delayed release diltiazem HCl 30 mg tablet 30 mg PO DAILY 09/07/22 09/07/22 isosorbide mononitrate 30 mg 30 mg PO DAILY 09/07/22 09/07/22 tablet,extended release 24 hr losartan 25 mg tablet 25 mg PO DAILY 09/07/22 09/07/22 metformin 1,000 mg 24 hr 1,000 mg PO BID 09/07/22 09/07/22 tablet,extended release naproxen 250 mg tablet 250 mg PO DAILY 09/07/22 09/07/22 pantoprazole 40 mg tablet,delayed 40 mg PO DAILY 09/07/22 09/07/22 release paroxetine HCl 20 mg tablet 20 mg PO DAILY 09/07/22 09/07/22 rivaroxaban 20 mg tablet (Xarelto) 20 mg PO DAILY 09/07/22 09/07/22 rosuvastatin 40 mg tablet 40 mg PO DAILY 09/07/22 09/07/22 sitagliptin phosphate 100 mg 100 mg PO DAILY 09/07/22 09/07/22 tablet (Januvia) sotalol 80 mg tablet 80 mg PO DAILY 09/07/22 09/07/22 Previous Rx's Medication Instructions Recorded sulfamethoxazole 800 1 tab PO BID #20 tabs 09/07/22 mg-trimethoprim 160 mg tablet Allergies Allergy/AdvReac Type Severity Reaction Status Date / Time Penicillins Allergy Verified 09/07/22 14:45 [facility] Disclaimer: The information contained in this section may have been updated after the patient was seen, as this information can be updated by other users. Social History Smoking Status: Never smoker alcohol intake: never current occupational status: other Travel in the last 8 weeks: None ROS Obtained: Yes All systems reviewed & no additional complaints except as documented Physical Exam General General appearance: alert and in distress Comment: In acute distress secondary to pain with active nausea and vomiting. Patient is very diaphoretic. Head Head exam: atraumatic and norm
[2023-05-16 16:52] LABS: Blood Urea Nitrogen 15 mg/dl (7-17); Creatinine Clearance Estimated 58 mL/min (50-200); Estimated Glomerular Filt Rate 97 ml/min (>60); GFR (African American) 118 ML/MIN (>60)
[2023-05-16 16:53] LABS: Alanine Aminotransferase 47 U/L (12-78); Albumin Level 4.5 g/dl (3.5-5.0); Albumin/Globulin Ratio 0.9 (1.1-1.8); Alkaline Phosphatase 269 U/L (38-126); Anion Gap 20.2 mEq/L (5-15); Aspartate Amino Transferase 81 U/L (14-36); Basophils % 0.2 % (0.1-2.0); Bilirubin,Total 0.8 mg/dl (0.2-1.3); Calcium 11.1 mg/dl (8.4-10.2); Carbon Dioxide 20 mmol/L (22.0-30.0); Eosinophils # 0.1 K/mm3 (0.0-0.4); Eosinophils % 0.7 % (0.1-12.0); Glucose 146 mg/dl (74-100); Hematocrit 48.8 % (37.0-47.0); Hemoglobin 15.1 g/dL (12.2-16.2); Lymphocytes # 1.7 K/mm3 (0.7-4.5); Lymphocytes % 19.7 % (10-50); Mean Corpuscular Hemoglobin 27.3 pg (27.0-31.2); Mean Platelet Volume 7.9 fl (7.4-10.4); Monocytes # 0.6 K/mm3 (0.1-1.0); Monocytes % 6.6 % (1.7-9.3); Neutrophils # 6.1 K/mm3 (1.8-7.8); Neutrophils % 72.7 % (37.0-80.0); Platelet Count 308 K/mm3 (142-424); Red Blood Count 5.54 M/mm3 (4.20-5.40); Red Cell Distribution Width 14.8 % (11.5-17.5); Total Protein,Serum 9.5 g/dl (6.3-8.2); White Blood Count 8.3 K/mm3 (4.8-10.8)
[2023-05-16 16:57] LABS: Lactic Acid 2.2 mmol/L (0.7-2.1)
--- NOTE | 2023-05-16 17:05 | PC.NURSE ---
Pt gone to RAD via stretcher
--- NOTE | 2023-05-16 17:05 | PC.NURSE ---
pt to ct
--- NOTE | 2023-05-16 17:25 | PC.NURSE ---
Pt back from RAD
--- NOTE | 2023-05-16 17:32 | PC.NURSE ---
PT MEDICATED PER EMAR, FEELS BETTER AFTER PAIN MEDICATION. UNABLE TO VOID AT THIS TIME. CALL LIGHT WITHIN REACH
--- NOTE | 2023-05-16 17:42 | PC.NURSE ---
PT AMBULATED TO [facility]
[2023-05-16 17:49] LABS: Microscopic, Urine URINE MICROSCOPIC (MICROSCOPIC)
[2023-05-16 17:52] LABS: Appearance,Urine CLEAR (Clear); Bilirubin,Urine Negative (Negative); Blood, Urine TRACE-I (Negative); Color,Urine YELLOW (Yellow); Glucose,Urine (UA) Negative (Negative); Ketones,Urine Negative (Negative); Leukocyte Esterase,Urine Negative (Negative); Nitrate,Urine Negative (Negative); Protein,Urine TRACE (Negative)
[2023-05-16 18:03] LABS: RBC,Urine Occasional #/hpf (0-3); Squamous Epithelial Cell,Urine Occasional #/hpf (0-5); WBC,Urine Occasional #/hpf (0-3)
--- NOTE | 2023-05-16 18:16 | PC.NURSE ---
ER MD Dean speaking with maya
--- NOTE | 2023-05-16 18:55 | PC.NURSE ---
DR GALAVIZ SPEAKING WITH DR GILMORE AT
--- NOTE | 2023-05-16 19:06 | PC.NURSE ---
per Dr. Dean is going to call back
--- NOTE | 2023-05-16 19:32 | PC.NURSE ---
on the phone with transfer center
--- NOTE | 2023-05-16 19:38 | PC.NURSE ---
[facility] denied transfer
--- NOTE | 2023-05-16 20:40 | PC.NURSE ---
Pt medications, bra, and $20 in grocery bag with pt. Will be given to nurse upon arrival to floor.
[2023-05-16 20:46] LABS: Reflex Lactic Add Lactic Reflex
--- NOTE | 2023-05-16 20:47 | EXP.HP ---
History of Present Illness *Admission Date: 05/16/23 *Reason for visit:: intratable back pain. T11 compression Fx *History of present illness: This is a 78-year-old female with a history of Afib, HTN, HLD, PAD, NIDDM with neuropathy, and liver cancer status post 1 treatment in January presenting to the ER for evaluation, with concern for low back pain radiating to her left flank since a fall that happened approximately 4 weeks ago. The pain is described as constant, and she can only get relief whenever she positions her self in certain ways, worsening with any sort of movement. It is severe and sharp And no medications make it better. Previous CT scans were negative. Patient decided to came to the hospital today after feels no release, despite any previuos measure done at home. On review of systems, patient does admit to nausea and vomiting when the pain is severe and she also admits to constipation. No recent falls and no other concerns noted at this time, such as fevers, chills, chest pain, shortness of breath, dysuria, hematuria, polyuria, numbness, tingling, saddle anesthesia, incontinence, or other concerns. Admitted for further management. [facility] Disclaimer: The information contained in this section may have been updated after the patient was seen, as this information can be updated by other users. Social History Smoking Status: Never smoker alcohol intake: never current occupational status: other Travel in the last 8 weeks: None Review of Systems Review of Systems Review of systems:: pertinent systems reviewed and negative unless documented below Meds Home Medications and Allergies Home Medications Medication Instructions Recorded Confirmed Type clopidogrel 75 mg tablet 75 mg PO DAILY Platelet Inhibitor 05/30/20 05/17/23 History paroxetine HCl 40 mg tablet 40 mg PO DAILY Anxiety 05/30/20 05/17/23 History cholecalciferol (vitamin D3) 50 2,000 unit PO DAILY Supplement 09/07/22 05/17/23 History mcg (2,000 unit) capsule diltiazem HCl 30 mg tablet 30 mg PO BID High Blood Pressure 09/07/22 05/17/23 History isosorbide mononitrate 30 mg 30 mg PO DAILY High Blood Pressure 09/07/22 05/17/23 History tablet,extended release 24 hr metformin 1,000 mg 24 hr 1,000 mg PO BID Diabetes 09/07/22 05/17/23 History tablet,extended release pantoprazole 40 mg tablet,delayed 40 mg PO DAILY Acid Reflux 09/07/22 05/17/23 History release paroxetine HCl 20 mg tablet 20 mg PO DAILY Mood 09/07/22 05/17/23 History rivaroxaban 20 mg tablet (Xarelto) 20 mg PO DAILY Blood Thinner/Afib 09/07/22 05/17/23 History rosuvastatin 40 mg tablet 40 mg PO DAILY Cholesterol 09/07/22 05/17/23 History sitagliptin phosphate 100 mg 100 mg PO DAILY Diabetes 09/07/22 05/17/23 History tablet (Januvia) cyclobenzaprine 10 mg tablet 10 mg PO TIDP PRN Muscle Spasm 05/17/23 05/17/23 History lidocaine 4 % topical patch 1 patch topical Q8HP PRN Pain 05/17/23 05/17/23 History naproxen sodium 550 mg tablet 550 mg PO Q12HP PRN Pain 05/17/23 05/17/23 History New Prescriptions to Start Prescriptions: Allergies Allergy/AdvReac Type Severity Reaction Status Date / Time Penicillins Allergy Verified 09/07/22 14:45 ibuprofen AdvReac Other Verified 05/16/23 21:35 Exam Data for Last 24 hours Vital signs and Labs for Last 24 Hours: Temp Pulse Resp BP Pulse Ox O2 Del Method 98.4 F 86 18 163/81 H 98 Room Air 05/16/23 16:21 05/16/23 20:01 05/16/23 16:21 05/16/23 20:01 05/16/23 20:01 05/16/23 20:01 Laboratory Results - last 24 hr 05/16/23 16:25: WBC 8.3, RBC 5.54 H, Hgb 15.1, Hct 48.8 H, MCV 88.0, MCH 27.3, MCHC 31.0 L, RDW 14.8, Plt Count 308, MPV 7.9, Neut % (Auto) 72.7, Lymph % (Auto) 19.7, [place] % (Auto) 6.6, Eos % (Auto) 0.7, Baso % (Auto) 0.2, Neut # (Auto) 6.1, Lymph # (Auto) 1.7, [place] # (Auto) 0.6, Eos # (Auto) 0.1, Baso # (Auto) 0.0, Sodium 140, Potassium 4.2, Chloride 104, Car
--- NOTE | 2023-05-16 20:50 | PC.NURSE ---
called to give report, spoke with yaron. waiting on a call back.
[2023-05-16 21:00] LABS: Hemoglobin A1C 7.2 % (4.0-6.0)
[2023-05-16 21:57] LABS: Lactic Acid Follow Up (RFLX 1) 1.1 mmol/L (0.7-2.1)
[2023-05-16 22:18] LABS: POC Glucose,Bedside 136 (70-110)
[2023-05-17] VITALS: BP 129/65; PULSE 98; RESP 18; TEMP 36.6; O2SAT 93
[2023-05-17 04:00] VITALS: BP 113/59; PULSE 90; RESP 18; TEMP 36.6; O2SAT 94; BMI 26.7
[2023-05-17 05:15] LABS: POC Glucose,Bedside 122 (70-110)
[2023-05-17 07:13] LABS: Basophils % 0.2 % (0.1-2.0); Eosinophils # 0.1 K/mm3 (0.0-0.4); Eosinophils % 0.9 % (0.1-12.0); Hematocrit 49.4 % (37.0-47.0); Hemoglobin 15.1 g/dL (12.2-16.2); Lymphocytes # 1.1 K/mm3 (0.7-4.5); Lymphocytes % 16.5 % (10-50); Mean Corpuscular HGB Conc 30.6 g/dL (31.8-35.4); Mean Corpuscular Hemoglobin 27.8 pg (27.0-31.2); Monocytes # 0.4 K/mm3 (0.1-1.0); Monocytes % 6.6 % (1.7-9.3); Neutrophils # 4.8 K/mm3 (1.8-7.8); Neutrophils % 75.8 % (37.0-80.0); Platelet Count 209 K/mm3 (142-424); Red Blood Count 5.43 M/mm3 (4.20-5.40); Red Cell Distribution Width 14.6 % (11.5-17.5); White Blood Count 6.4 K/mm3 (4.8-10.8)
[2023-05-17 07:20] LABS: Chloride 106 mmol/L (98-107); Potassium 4.5 mmoL/L (3.5-5.1); Sodium 139 mmol/L (136-145)
[2023-05-17 07:23] LABS: Alanine Aminotransferase 32 U/L (12-78); Albumin/Globulin Ratio 0.9 (1.1-1.8); Alkaline Phosphatase 265 U/L (38-126); Anion Gap 18.5 mEq/L (5-15); Aspartate Amino Transferase 92 U/L (14-36); Blood Urea Nitrogen 13 mg/dl (7-17); Calcium 10.5 mg/dl (8.4-10.2); Carbon Dioxide 19 mmol/L (22.0-30.0); Creatinine Clearance Estimated 57 mL/min (50-200); Estimated Glomerular Filt Rate 97 ml/min (>60); GFR (African American) 118 ML/MIN (>60); Globulin 4.5 g/dL (1.3-3.2); Glucose 132 mg/dl (74-100); Magnesium 1.6 mg/dl (1.6-2.3); Total Protein,Serum 8.5 g/dl (6.3-8.2)
--- NOTE | 2023-05-17 07:29 | HMH.PHAINT1 ---
Pharmacy Intervention Comments: Medication history complete, medications verified with fill history and patient list / rx bottles. - Elsa Batres, PharmD Candidate 2023
[2023-05-17 08:00] VITALS: BP 122/56; PULSE 94; RESP 18; TEMP 36.9; O2SAT 94
[2023-05-17 08:00] LABS: Hemoglobin A1C 7.2 % (4.0-6.0)
--- NOTE | 2023-05-17 10:00 | HMH.OTEV ---
OT Inpatient Evaluation Rehab OT IP Evaluation Start: 05/17/23 07:03 Freq: ONCE Status: Active Protocol: Document 05/17/23 09:51 [facility] (Rec: 05/17/23 10:00 [facility] [id number]) Rehab OT IP Assessment Subjective History Pt oriented x 2. Family present and supportive during therapy session. Pt admitted on 05/16/23 due to intratable back pain. T11 compression Fx. Pt is a 78-year-old female with a history of Afib, HTN, HLD, PAD, NIDDM with neuropathy, and liver cancer status post 1 treatment in January presenting to the ER for evaluation, with concern for low back pain radiating to her left flank since a fall that happened approximately 4 weeks ago. Prior to being in the hospital , pt reports she lived with her ex . Pt claims up until 1 month ago she was completely independent with all ADLs and IADLs. Pt also still drove. She did not use any type of AE during functional transfesr. Subjective I could do whatever I needed. Objective Patient Orientation Person,Birthday Upper Extremity Gross ROM WFL Bed Mobility bed mobility-scooting,bed mobility - supine/sit,bed mobility - rolling Assist Level Moderate x 2 (50% assist) Transfer Training Sit/Stand/Step Transfer Assist Level Minimal x 1 (25% assist) Rehab OT IP prob,goals,plan Problems Date of Evaluation: 05/17/23 OT IP Problems Bed Mobility,Transfers,Balance ,Self care,Safety Rehab Potential Rehab Potential Good Equipment Needs Assistive Devices Rolling / Wheeled Walker Plan OT intervention Plan Bed Mobility,Transfers,Balance ,Self care,Safety,Therapeutic Exercise OT Plan Frequency BID Duration LOS Discharge Goals Bed Mobility Ability Assistance x1 Sit to Stand Chair Transfer Ability Contact Guard/Hand Hold Chair Transfer Shirlene
--- NOTE | 2023-05-17 10:23 | EXP.PAIN.OV ---
HPI Data of Consult Patient: new to practice Consult date: 05/17/23 Requesting Physician: Lacho Muñoz MD Primary Care Provider: Referral Provider, Consult Narrative Reason for consult: Mid back pain, acute compression fracture History of present illness: Ms. Herbert is a 78 year old female who [facility] related to an acute compression fracture of T11. Patient does rate her pain today a 6 out of 10 while laying down however with sitting upright or moving it does shoot up to a 8 or 9. Patient does state that she had a fall approximately 4 weeks ago at her home. Patient states that for what ever reason she felt like her knee had gone the wrong direction causing her to fall backwards hitting her back. Patient does describe her pain as a achy, sharp sensation that is worse with increased activity. Patient does state that she went to [facility] on 2 different occasions and did have x-ray imaging however was told that she had not fractured anything and it was just bruised. Patient does state over the last month her pain has continued to worsen and so they decided to come to [facility] for further evaluation. Patient has tried [id number] medications such as Tylenol and ibuprofen along with heat and ice and topicals with no additional relief. Patient does have a history of cardiac stents and sees a tax assessor in [place]. Patient also states that she does have a history of liver cancer and is treated at for this. CC: Lacho Muñoz MD [facility] Disclaimer: The information contained in this section may have been updated after the patient was seen, as this information can be updated by other users. Social History Smoking Status: Never smoker alcohol intake: never current occupational status: other Travel in the last 8 weeks: None Review of Systems Review of Systems Review of systems:: pertinent systems reviewed and negative unless documented below Review of systems (narrative): Review of Systems: General: No recent weight changes, no fever, no sleep disturbances Respiratory: No cough, no shortness of air, no recurring pulmonary infections Cardiovascular/peripheral vascular: No chest pain, no palpitations, no edema, no shortness of breath Gastrointestinal: No new onset incontinence, normal bowel movements reported Genitourinary: No new onset incontinence Musculoskeletal: Mid back pain Psychiatric: [Normal mood/affect] Neurological: [Denies weakness in extremities], [denies balance issues] Meds Home Medications and Allergies Home Medications Medication Instructions Recorded Confirmed Type clopidogrel 75 mg tablet 75 mg PO DAILY Platelet Inhibitor 05/30/20 05/17/23 History paroxetine HCl 40 mg tablet 40 mg PO DAILY Anxiety 05/30/20 05/17/23 History cholecalciferol (vitamin D3) 50 2,000 unit PO DAILY Supplement 09/07/22 05/17/23 History mcg (2,000 unit) capsule diltiazem HCl 30 mg tablet 30 mg PO BID High Blood Pressure 09/07/22 05/17/23 History isosorbide mononitrate 30 mg 30 mg PO DAILY High Blood Pressure 09/07/22 05/17/23 History tablet,extended release 24 hr metformin 1,000 mg 24 hr 1,000 mg PO BID Diabetes 09/07/22 05/17/23 History tablet,extended release pantoprazole 40 mg tablet,delayed 40 mg PO DAILY Acid Reflux 09/07/22 05/17/23 History release paroxetine HCl 20 mg tablet 20 mg PO DAILY Mood 09/07/22 05/17/23 History rivaroxaban 20 mg tablet (Xarelto) 20 mg PO DAILY Blood Thinner/Afib 09/07/22 05/17/23 History rosuvastatin 40 mg tablet 40 mg PO DAILY Cholesterol 09/07/22 05/17/23 History sitagliptin phosphate 100 mg 100 mg PO DAILY Diabetes 09/07/22 05/17/23 History tablet (Januvia) cyclobenzaprine 10 mg tablet 10 mg PO TIDP PRN Muscle Spasm 05/17/23 05/17/23 History lidocaine 4 % topical patch 1 patch topical Q8HP PRN Pain 05/17/23 05/17/23 History naproxen sodium 550 mg tabl
--- NOTE | 2023-05-17 11:01 | EXP.ACUTE.PN ---
Subjective *Date: 05/17/23 *Time: 20:34 Interval history: Patient having significant low back pain. 6-7 out of 10 when lays flat. 10 out of 10 when tries to get up. Denies any nausea or vomiting. Pain is gradually gotten worse over the past month. [facility] received from [facility] initially helped for about a week but is no longer worked as her pain has progressed. Unable to achieve good pain control at home. Feels she cannot ambulate independently at this time or get up independently. Once up can ambulate briefly but needs to lay down for pain. Addressing pain regimen today. Tolerating p.o. intake. No further falls after initial fall 1 month ago Medical Exam Vital signs and Labs for Last 24 Hours: Vital Signs Temp Pulse Pulse Resp BP BP Pulse Ox 05/17/23 09:00 05/17/23 08:00 05/17/23 08:00 98.5 F 94 H 18 122/56 L 94 L 05/17/23 04:00 97.9 F 90 18 113/59 L 94 L 05/17/23 06:22 05/17/23 04:36 05/17/23 02:56 05/17/23 01:00 05/17/23 00:00 97.9 F 98 H 18 129/65 93 L 05/16/23 22:59 05/16/23 21:00 05/16/23 21:15 99.0 F 86 18 152/70 H 99 05/16/23 22:18 05/16/23 20:51 97.0 F L 89 14 174/102 H 05/16/23 20:01 86 163/81 H 98 05/16/23 19:30 83 145/59 H 96 05/16/23 19:01 85 142/58 H 96 05/16/23 18:30 90 131/64 91 L 05/16/23 18:00 83 147/66 H 95 05/16/23 17:30 91 H 135/59 L 95 05/16/23 17:00 89 152/73 H 97 05/16/23 16:21 98.4 F 96 H 18 193/92 H 98 O2 Del Method 05/17/23 09:00 Room Air 05/17/23 08:00 Room Air 05/17/23 08:00 Room Air 05/17/23 04:00 Room Air 05/17/23 06:22 Room Air 05/17/23 04:36 Room Air 05/17/23 02:56 Room Air 05/17/23 01:00 Room Air 05/17/23 00:00 Room Air 05/16/23 22:59 Room Air 05/16/23 21:00 Room Air 05/16/23 21:15 Room Air 05/16/23 22:18 Room Air 05/16/23 20:51 Room Air 05/16/23 20:01 Room Air 05/16/23 19:30 Room Air 05/16/23 19:01 Room Air 05/16/23 18:30 Room Air 05/16/23 18:00 Room Air 05/16/23 17:30 Room Air 05/16/23 17:00 Room Air 05/16/23 16:21 Room Air Intake and Output 05/16/23 05/17/23 05/17/23 23:59 07:59 15:59 Intake Total 240 / 300 60 / 300 240 / 300 Output Total 0 / 0 0 / 0 Balance 240 / 300 60 / 300 240 / 300 Intake: Intake, Oral Amount 240 / 300 60 / 300 240 / 300 Output: Output, Urine Amount 0 / 0 0 / 0 Other: Number of Voids 0 Number of Unmeasured Voids 1 Weight 75.523 kg 75.466 kg Patient Weight 05/17/23 23:59 Weight 75.466 kg Laboratory Results - last 24 hr 05/16/23 16:25: WBC 8.3, RBC 5.54 H, Hgb 15.1, Hct 48.8 H, MCV 88.0, MCH 27.3, MCHC 31.0 L, RDW 14.8, Plt Count 308, MPV 7.9, Neut % (Auto) 72.7, Lymph % (Auto) 19.7, [place] % (Auto) 6.6, Eos % (Auto) 0.7, Baso % (Auto) 0.2, Neut # (Auto) 6.1, Lymph # (Auto) 1.7, [place] # (Auto) 0.6, Eos # (Auto) 0.1, Baso # (Auto) 0.0, Sodium 140, Potassium 4.2, Chloride 104, Carbon Dioxide 20 L, Anion Gap 20.2 H, BUN 15, Creatinine 0.60, Estimated Creat Clear 58, Estimated GFR 97, Est GFR ( Amer) 118, Glucose 146 H, Hemoglobin A1c 7.2 H, Lactate 2.2 H, Calcium 11.1 H, Total Bilirubin 0.8, AST 81 H, ALT 47, Alkaline Phosphatase 269 H, Total Protein 9.5 H, Albumin 4.5, Globulin 5.0 H, Albumin/Globulin Ratio 0.9 L 05/16/23 17:40: Urine Color Yellow, Urine Appearance Clear, Urine pH 6.0, Ur Specific [place] 1.010, Urine Protein Trace, Urine Glucose (UA) Negative, Urine Ketones Negative, Urine Blood Trace-i, Urine Nitrate Negative, Urine Bilirubin Negative, Urine Urobilinogen 1.0, Ur Leukocyte Esterase Negative, Urine RBC Occasional, Urine WBC Occasional, Ur Squamous Epith Cells Occasional, Urine Bacteria None 05/16/23 21:30: Lactate 1.1 05/16/23 22:09: POC Glucose 136 H 05/17/23 05:05: POC Glucose 122 H 05/17/23 06:05: WBC 6.4, RBC 5.43 H, Hgb 15.1, Hct 49.4 H, MCV 91.0, MCH 27.8, MCHC 30.6 L, RDW 14.6, Plt Count 20
[2023-05-17 11:04] LABS: POC Glucose,Bedside 157 (70-110)
--- NOTE | 2023-05-17 11:09 | HMH.PTEV ---
Physical Therapy Evaluation Rehab PT IP Evaluation Start: 05/17/23 07:03 Freq: ONCE Status: Active Protocol: Document 05/17/23 11:02 PHORNE (Rec: 05/17/23 11:09 PHORNE [id number]) Subjective/History History History 78 yowf adm to [facility] with severe intractable back pain. She has hx of Afib, HTN, HLD, PAD, NIDDM with neuropathy, and liver cancer status post 1 treatment in January. SHe reports ground level fall ~ 1 mo ago with worsening pain since that time. Now with T11 comp fx per CT. She reports she lives alone, no steps to enter the home, and she was independent with all mobility prior to her fall. Subjective Subjective Pt c/o significant pain with any movements, especially supine - sit. Rehab PT IP Eval Objective Appearance Patient Behavior Appropriate Patient Orientation Person,Place,Time Difficulty following instructions none Speech Pattern Clear Ambulation Patient Able to Ambulate Yes Ambulation Observation IP General Gait Pattern Observation Shuffling Step Ambulation Distance (feet) 5 Ambulation Assistive Device None Ambulation Ability Contact Guard/Hand Hold Balance Ability to Arise Unable Sitting Balance Steady, safe Standing Balance Steady, wide stance Dynamic Sitting Balance Ability Fair Dynamic Standing Balance Ability Fair Transfers Bed Transfer Ability Moderate x 2 (50% assist) Chair Transfer Ability Minimal x 1 (25% assist) Sit to Stand Bed Transfer Ability Minimal x 1 (25% assist) Sit to Stand Chair Transfer Ability Minimal x 1 (25% assist) ROM All Extremities PT ROM Status WFL MMT All Extremities PT MMT WFL Rehab PT IP prob,goals,plan Problems Date of Evaluation: 05/17/23 PT IP Problems Bed Mobility,Transfers,Gait Rehab Potential Rehab Potential Fair Plan PT Intervention Plan Bed Mobility,Transfers,Gait, Self care,Therapeutic Exercise PT Plan Frequency Daily Duration LOS Discharge Goals Bed Transfer Ability Minimal x 2 (25% assist) Sit to Stand Chair Transfer Ability Contact Guard/Hand Hold Ambulation Assistive Device Rolling Walker Ambulation Distance (feet) 20 Discharg
--- NOTE | 2023-05-17 12:55 | SW/DCPLANNER ---
Addendum entered by Aleida Vitale 05/19/23 09:15: Late entry: patient was approved SNF level of care and discharged to [facility] yesterday afternoon. Addendum entered by Aleida Vitale 05/18/23 09:56: Kelly w/ [facility] stated that precert is still pending at this time. Addendum entered by Aleida Vitale 05/17/23 15:22: [facility] ([phone][facility] will [facility] today. Original Note: Patient currently resides at home with her ex . PT/OT evaluated patient and recommended SNF level of care. Patient is agreeable to SNF at [facility] in [place] or returning home w/ home health services and assistance from family. Patient information has been faxed to [facility] at this time. Patient may be ready for discharge later today. I will continue to update patient/family, MD and facility.
[2023-05-17 16:00] VITALS: BP 129/72; PULSE 95; RESP 20; TEMP 36.6; O2SAT 95
[2023-05-17 16:34] LABS: POC Glucose,Bedside 124 (70-110)
[2023-05-17 20:00] VITALS: BP 109/58; PULSE 109; RESP 18; TEMP 37.3; O2SAT 92
[2023-05-17 20:10] LABS: POC Glucose,Bedside 133 (70-110)
[2023-05-18 04:00] VITALS: BP 127/61; PULSE 84; RESP 18; TEMP 36.8; O2SAT 92; BMI 27.0
[2023-05-18 04:54] LABS: POC Glucose,Bedside 149 (70-110)
--- NOTE | 2023-05-18 07:03 | PC.NURSE ---
NO ACUTE CHANGES THIS SHIFT. VSS. PT HAS BEEN TREATED FOR PAIN X2 THIS SHIFT.
--- NOTE | 2023-05-18 07:33 | EXP.PN ---
Subjective *Date: 05/18/23 *Time: 07:33 Exam Data for Last 24 hours Vital signs and Labs for Last 24 Hours: Temp Pulse Resp BP Pulse Ox O2 Del Method 98.2 F 84 18 127/61 92 L Room Air 05/18/23 04:00 05/18/23 04:00 05/18/23 04:00 05/18/23 04:00 05/18/23 04:00 05/18/23 06:54 Laboratory Results - last 24 hr 05/17/23 06:05: Carbon Dioxide 19 L, Anion Gap 18.5 H, BUN 13, Creatinine 0.60, Estimated Creat Clear 57, Estimated GFR 97, Est GFR ( Amer) 118, Glucose 132 H, Hemoglobin A1c 7.2 H, Calcium 10.5 H, Phosphorus 4.0, Magnesium 1.6, Total Bilirubin 1.0, AST 92 H, ALT 32 D, Alkaline Phosphatase 265 H, Total Protein 8.5 H, Albumin 4.0 D, Globulin 4.5 H, Albumin/Globulin Ratio 0.9 L 05/17/23 10:53: POC Glucose 157 H 05/17/23 16:26: POC Glucose 124 H 05/17/23 19:51: POC Glucose 133 H 05/18/23 04:46: POC Glucose 149 H I & O for Last 24 hours: Intake & Output 05/15/23 05/16/23 05/17/23 05/18/23 23:59 23:59 23:59 23:59 Intake Total 240 / 300 900 / 900 Output Total 0 / 0 300 / 300 400 / 400 Balance 240 / 300 600 / 600 -400 / -400 Weight 75.523 kg 75.466 kg 76.26 kg
[2023-05-18 08:00] VITALS: BP 116/61; PULSE 90; RESP 18; TEMP 36.9; O2SAT 97
[2023-05-18 11:17] LABS: POC Glucose,Bedside 149 (70-110)
[2023-05-18 16:00] VITALS: BP 121/60; PULSE 89; RESP 18; TEMP 36.6; O2SAT 95
--- NOTE | 2023-05-18 16:33 | EXP.DC.SUM ---
General Admission date:: 05/16/23 Discharge date: 05/18/23 HPI HPI HPI: Forwarded from admission H&P: This is a 78-year-old female with a history of Afib, HTN, HLD, PAD, NIDDM with neuropathy, and liver cancer status post 1 treatment in January presenting to the ER for evaluation, with concern for low back pain radiating to her left flank since a fall that happened approximately 4 weeks ago. The pain is described as constant, and she can only get relief whenever she positions her self in certain ways, worsening with any sort of movement. It is severe and sharp And no medications make it better. Previous CT scans were negative. Patient decided to came to the hospital today after feels no release, despite any previuos measure done at home. On review of systems, patient does admit to nausea and vomiting when the pain is severe and she also admits to constipation. No recent falls and no other concerns noted at this time, such as fevers, chills, chest pain, shortness of breath, dysuria, hematuria, polyuria, numbness, tingling, saddle anesthesia, incontinence, or other concerns. Admitted for further management. Hospital Course Hospital Course Hospital Course: Thoracic spine CT revealed acute appearing slight compression fracture of T11 with mild associated spinal stenosis. Pelvis/lumbar spine ct did not reveal any other acute abnormality. Pain management was consulted and provided the patient with a customized back brace to stabilize the site of her compression fracture. An MRI of the thoracic spine without contrast was ordered to be done in the outpatient setting; she will need to follow up with Dr. Pennington and may need kyphoplasty or thoracic epidurals. Her diltiazem and isosorbide mononitrate were held throughout the hospital course and her blood pressure was within normal limits on day of discharge. She will need to hold these medications until she follows up with her PCP in one week. She hadn't had a bowel movement during her hospital stay and was prescribed PRN miralax on day of discharge. Exam Data for Last 24 hours Vital signs and Labs for Last 24 Hours: Temp Pulse Resp BP Pulse Ox O2 Del Method 98.4 F 90 18 116/61 97 Room Air 05/18/23 08:00 05/18/23 08:00 05/18/23 08:00 05/18/23 08:00 05/18/23 08:00 05/18/23 15:00 Laboratory Results - last 24 hr 05/17/23 16:26: POC Glucose 124 H 05/17/23 19:51: POC Glucose 133 H 05/18/23 04:46: POC Glucose 149 H 05/18/23 11:06: POC Glucose 149 H I & O for Last 24 hours: Intake & Output 05/15/23 05/16/23 05/17/23 05/18/23 23:59 23:59 23:59 23:59 Intake Total 240 / 300 900 / 900 Output Total 0 / 0 300 / 300 400 / 400 Balance 240 / 300 600 / 600 -400 / -400 Weight 75.523 kg 75.466 kg 76.26 kg Constitutional Constitutional: no acute distress *Routine HEENT Exam Head: Present normocephalic Eye: Present EOMI and PERRL ENT: Present mucous membranes moist *Routine Neck Exam Neck: Present supple; Absent lymphadenopathy *Routine Respiratory Exam Respiratory: Present CTA bilaterally *Routine Cardiovascular Exam Cardiovascular: Present RRR *Routine Abdominal Exam Abdominal: Present soft and normoactive bowel sounds; Absent tenderness *Routine Extremities Exam Extremities: Absent cyanosis, clubbing or edema *Routine Skin Exam Skin: Present warm; Absent rash *Routine Neurological Exam Neurological: Present alert and oriented X3 Results Data Completed and Pending Labs on day of discharge: Labs from last 24 hours 05/18/23 05/18/23 05/17/23 11:06 04:46 19:51 POC Glucose 149 H 149 H 133 H 05/17/23 16:26 POC Glucose 124 H DS: Diagnosis Discharge Diagnosis (1) Mid back pain: Status: Acute Code(s): M54.9 - Dorsalgia, unspecified (2) Closed fracture of T11 vertebra: Status: Acute Code(s): S22.089A - Unspecified fracture of T11-T12 vertebra, initial encounter for closed fracture Qualifiers: Encounter
--- NOTE | 2023-05-18 17:04 | PC.NURSE ---
report called to vega lemus nurse aaron
== END 2023-05-18 17:15 ==
LOC: ER 20:19 → 2ND 20:43
PROVIDERS: Nurse Practitioner Family; Admitting Provider Internal Medicine Adolescent Medicine; Emergency Provider Emergency Medicine; Visit Provider Internal Medicine Adolescent Medicine
DX: S22.081A Stable burst fracture of T11-T12 vertebra, initial encounter for closed fracture (principal); M54.9 Dorsalgia, unspecified; E11.40 Type 2 diabetes mellitus with diabetic neuropathy, unspecified; I48.11 Longstanding persistent atrial fibrillation; I10 Essential (primary) hypertension; E78.5 Hyperlipidemia, unspecified; R16.0 Hepatomegaly, not elsewhere classified; M51.34 Other intervertebral disc degeneration, thoracic region; M51.36 Other intervertebral disc degeneration, lumbar region; Z79.899 Other long term (current) drug therapy; Z79.01 Long term (current) use of anticoagulants; Z79.84 Long term (current) use of oral hypoglycemic drugs; C22.8 Malignant neoplasm of liver, primary, unspecified as to type; R29.6 Repeated falls
CPT/HCPCS: 36415; 72128; 72131; 72192; 74174; 80053; 81001; 82962; 83036; 83605; 83735; 84100; 85025; 93005; 97116; 97163; 97166; 97530; 99291; G0378; J0131; J2405; J3475; Q9967

== ENCOUNTER → 2023-06-04 09:43 | Outpatient (POV) | payer MEDICARE, MEDICAID, SELFPAY ==
--- NOTE | 2023-06-04 10:15 | EXP.PAIN.SOA ---
[facility] Pain Management SOAP Note Subjective:: This patient is a very pleasant 78-year-old female that comes to our clinic today for follow-up visit after being discharged from 18 days of rehab [facility]. Patient was first seen by our staff as an inpatient on 05/17/2023. Patient was seen by our staff due to severe back pain in the thoracolumbar area. Patient CT shows vertebral fracture T11. It was discussed with the patient at that time regarding kyphoplasty. However, patient was not interested at the time. Since that visit as an inpatient patient was discharged from the hospital went for rehab [facility] a pen[facility] and pain is increased significantly. Patient rates her pain today 10/10. Patient in obvious distress sitting in a wheelchair in our clinic today. I discussed with her and her daughter regarding kyphoplasty at T11. They wish to proceed. I discussed all details regarding the procedure including risk versus benefits. I answered their questions. Patient is currently taking hydrocodone 5 mg 2 tablets every 4 hours to help with pain. Her Donte #[id number] has been reviewed and appropriate. Patient states the hydrocodone does decrease pain slightly. Being supine decreases pain slightly. We will submit for approval from Medicare regarding kyphoplasty T11. Objective:: Patient is awake alert Josephine x3. In obvious distress secondary to pain in thoracolumbar area. Patient's gait not evaluated secondary to patient in wheelchair today. Upper and lower motor strength normal. There is no sensory deficit. Assessment:: T11 vertebral fracture. Plan:: We will plan kyphoplasty T11. We will refill patient's pain medication if in fact she finishes her current prescription prior to kyphoplasty. I instructed the daughter to call the office regarding refill and pain medication. [facility] Disclaimer: The information contained in this section may have been updated after the patient was seen, as this information can be updated by other users. Social History Smoking Status: Never smoker alcohol intake: never substance use type: denies use current occupational status: other Travel in the last 8 weeks: None
[2023-06-04 12:14] VITALS: BP 106/58; PULSE 114; RESP 18; O2SAT 96; BMI 27.4
== END ==
PROVIDERS: Visit Provider Nurse Anesthetist, Certified Registered
DX: M84.48XA Pathological fracture, other site, initial encounter for fracture (principal)
CPT/HCPCS: 99212; G0463

== ENCOUNTER 2023-06-05 11:33 | Inpatient (IN) | payer MEDICARE, MEDICAID, SELFPAY ==
[2023-06-05] VITALS (9 sets, daily range): BP systolic 114–143; BP diastolic 49–100; PULSE 83–150; RESP 16–20; TEMP 36.6–36.8; O2SAT 96–99; BMI 28.3; BMI 27.8
--- NOTE | 2023-06-05 11:45 | CT_ITS ---
PROCEDURE INFORMATION: Exam: CT Thoracic Spine Without Contrast Exam date and time: 06/05/2023 12:20 PM Age: 78 years old Clinical indication: Pain in thoracic spine; Additional info: Acute on chronic pain TECHNIQUE: Imaging protocol: Computed tomography of the thoracic spine without contrast. Radiation optimization: All CT scans at this facility use at least one of these dose optimization techniques: automated exposure control; mA and/or kV adjustment per patient size (includes targeted exams where dose is matched to clinical indication); or iterative reconstruction. REPORTING DATA: Count of CT and Cardiac NM exams in prior 12 months: This patient has received 4 known CTs and 0 known cardiac nuclear medicine studies in the 12 months prior to the current study. COMPARISON: CT THORACIC SPINE WO CON 05/16/2023 5:12 PM FINDINGS: Bones/joints: Diffuse osteopenia. There is an acute/subacute complete burst fracture of T11 vertebra with approximate 25 % height loss. Mild retropulsion of the posterior cortex into the spinal canal noted. Vertebral alignment is maintained. Facet joints are aligned Soft tissues: Unremarkable. Vasculature: Hyperattenuating material in the coronary tree likely a combination of vascular stents and atherosclerosis. Lymph nodes: Calcified mediastinal and hilar lymph nodes suggest prior granulomatous exposure. IMPRESSION: There is an acute/subacute complete burst fracture of T11 vertebra with approximate 25 % height loss. Mild retropulsion of the posterior cortex into the spinal canal noted. Thoracic spine MRI is recommended for better evaluation of the epidural space and spinal cord.
--- NOTE | 2023-06-05 11:45 | HMH.EDGENADL ---
Discharge Plan Disposition Patient Disposition: Admitted as Observation Condition: Good Clinical Impressions Clinical Impression: GLORIA (acute kidney injury) Discharge ED Provider: Mynor Watson Adult HPI General Chief complaint: Back Pain/Injury Stated complaint: Dehydrated Time Seen by Provider: 06/05/23 11:35 History of Present Illness HPI narrative: Patient presents for evaluation of several symptoms including decreased p.o. intake, nausea, severe back pain, gradual in onset in the setting of known thoracic spinal compression fracture, previous therapies include previously prescribed [place] tablets with minimal improvement of symptoms, patient denies any focal weakness or numbness, presents with family member at bedside who state patient has had no recent falls, patient does describe left hip pain which is new for her and different from known thoracic spinal injury. No pain elsewhere. No fevers or chills, no urinary symptoms. No incontinence, no saddle anesthesia. No sick contacts, no unilateral leg pain or leg swelling. No chest pain. Related Data Home Medications Medication Instructions Recorded Confirmed clopidogrel 75 mg tablet 75 mg PO DAILY Platelet Inhibitor 05/30/20 06/04/23 paroxetine HCl 40 mg tablet 40 mg PO DAILY Anxiety 05/30/20 06/04/23 cholecalciferol (vitamin D3) 50 2,000 unit PO DAILY Supplement 09/07/22 06/04/23 mcg (2,000 unit) capsule diltiazem HCl 30 mg tablet 30 mg PO BID High Blood Pressure 09/07/22 06/04/23 isosorbide mononitrate 30 mg 30 mg PO DAILY High Blood Pressure 09/07/22 06/04/23 tablet,extended release 24 hr metformin 1,000 mg 24 hr 1,000 mg PO BID Diabetes 09/07/22 06/04/23 tablet,extended release pantoprazole 40 mg tablet,delayed 40 mg PO DAILY Acid Reflux 09/07/22 06/04/23 release paroxetine HCl 20 mg tablet 20 mg PO DAILY Mood 09/07/22 06/04/23 rivaroxaban 20 mg tablet (Xarelto) 20 mg PO DAILY Blood Thinner/Afib 09/07/22 06/04/23 rosuvastatin 40 mg tablet 40 mg PO DAILY Cholesterol 09/07/22 06/04/23 sitagliptin phosphate 100 mg 100 mg PO DAILY Diabetes 09/07/22 06/04/23 tablet (Januvia) cyclobenzaprine 10 mg tablet 10 mg PO TIDP PRN Muscle Spasm 05/17/23 06/04/23 lidocaine 4 % topical patch 1 patch topical Q8HP PRN Pain 05/17/23 06/04/23 naproxen sodium 550 mg tablet 550 mg PO Q12HP PRN Pain 05/17/23 06/04/23 Previous Rx's Medication Instructions Recorded hydrocodone 5 mg-acetaminophen 325 1 tab PO Q4H PRN pain #18 tabs 05/18/23 mg tablet polyethylene glycol 3350 17 gram 17 g PO DAILYP PRN Constipation 05/18/23 oral powder packet (Miralax) #30 ea Allergies Allergy/AdvReac Type Severity Reaction Status Date / Time Penicillins Allergy Verified 09/07/22 14:45 ibuprofen AdvReac Other Verified 05/16/23 21:35 PFSH PFS Disclaimer: The information contained in this section may have been updated after the patient was seen, as this information can be updated by other users. Medical History (Updated 06/05/23 @ 15:08 by Zayra Cortes RN) Atrial fibrillation Falls frequently Hyperlipidemia Hypertension Liver masses Family History (Updated 06/05/23 @ 14:47 by Gaby Castillo RN) Other No significant family history Social History (Updated 06/05/23 @ 14:48 by Gaby Castillo RN) Smoking Status: Never smoker alcohol intake: never substance use type: denies use current occupational status: retired Travel in the last 8 weeks: None ROS Obtained: Yes Systems reviewed as appropriate & no additional complaints except as documented Physical Exam General General appearance: alert and other (Chronically ill-appearing) Head Head exam: atraumatic and normocephalic Eye Eye exam: Present normal appearance ENT ENT exam: Present mucous membranes dry Neck Neck exam: Present normal inspection Chest Chest inspection: Present normal inspection and symmetric chest wall rise Respiratory Respiratory exam: Present normal lung sounds bi
--- NOTE | 2023-06-05 11:47 | CT_ITS ---
PROCEDURE INFORMATION: Exam: CT Cervical Spine Without Contrast Exam date and time: 06/05/2023 12:18 PM Age: 78 years old Clinical indication: Neck pain; Additional info: Acute on chronic pain TECHNIQUE: Imaging protocol: Computed tomography of the cervical spine without contrast. Radiation optimization: All CT scans at this facility use at least one of these dose optimization techniques: automated exposure control; mA and/or kV adjustment per patient size (includes targeted exams where dose is matched to clinical indication); or iterative reconstruction. REPORTING DATA: Count of CT and Cardiac NM exams in prior 12 months: This patient has received 4 known CTs and 0 known cardiac nuclear medicine studies in the 12 months prior to the current study. COMPARISON: CT HEAD/BRAIN WO CON 06/05/2023 12:17 PM FINDINGS: Bones/joints: Vertebral alignment is maintained. There is preservation of vertebral body heights. Facet joints are aligned. Odontoid process is intact. Atlantoaxial interval maintained. No acute fracture. Uncovertebral and facet arthropathy result in varying degrees of neural foraminal narrowing at multiple levels. Lungs: Lung apices are normal. Soft tissues: Prevertebral and paravertebral soft tissues are maintained IMPRESSION: No acute fracture. No traumatic subluxation.
--- NOTE | 2023-06-05 11:47 | CT_ITS ---
PROCEDURE INFORMATION: Exam: CT Lumbar Spine Without Contrast Exam date and time: 06/05/2023 12:23 PM Age: 78 years old Clinical indication: Low back pain; Additional info: Acute on chronic pain, HX of previous FX TECHNIQUE: Imaging protocol: Computed tomography of the lumbar spine without contrast. Radiation optimization: All CT scans at this facility use at least one of these dose optimization techniques: automated exposure control; mA and/or kV adjustment per patient size (includes targeted exams where dose is matched to clinical indication); or iterative reconstruction. REPORTING DATA: Count of CT and Cardiac NM exams in prior 12 months: This patient has received 4 known CTs and 0 known cardiac nuclear medicine studies in the 12 months prior to the current study. COMPARISON: CT LUMBAR SPINE WO CON 05/16/2023 5:16 PM FINDINGS: Bones/joints: For findings in the thoracic spine, please refer to the separately dictated thoracic spine CT report under a separate accession number. Diffuse osteopenia. There is preservation of vertebral alignment and vertebral body heights. Facet joints are aligned. No acute fracture. No significant central spinal canal stenosis or neural foraminal narrowing at any level. Sacroiliac joints are intact. Soft tissues: Unremarkable. IMPRESSION: No acute fracture. No traumatic subluxation.
--- NOTE | 2023-06-05 11:47 | CT_ITS ---
PROCEDURE INFORMATION: Exam: CT Pelvis Without Contrast; Skeletal Exam date and time: 06/05/2023 12:26 PM Age: 78 years old Clinical indication: Pelvic pain; Additional info: Acute on chronic pain TECHNIQUE: Imaging protocol: Computed tomography of the pelvis without contrast. Exam focused on the skeleton. Radiation optimization: All CT scans at this facility use at least one of these dose optimization techniques: automated exposure control; mA and/or kV adjustment per patient size (includes targeted exams where dose is matched to clinical indication); or iterative reconstruction. REPORTING DATA: Count of CT and Cardiac NM exams in prior 12 months: This patient has received 4 known CTs and 0 known cardiac nuclear medicine studies in the 12 months prior to the current study. COMPARISON: CT BONY PELVIS 05/16/2023 5:18 PM FINDINGS: Vasculature: Vascular calcifications noted. Bones/joints: Diffuse osteopenia. Sacroiliac joints are congruent. Femoral heads are well seated in the acetabula. Pubic rami are intact. The sacrum is unremarkable. No visible fracture or dislocation. Mild bilateral hip osteoarthritis Soft tissues: Unremarkable. IMPRESSION: 1. No visible fracture or dislocation. 2. Mild bilateral hip osteoarthritis
--- NOTE | 2023-06-05 11:47 | CT_ITS ---
PROCEDURE INFORMATION: Exam: CT Head Without Contrast Exam date and time: 06/05/2023 12:17 PM Age: 78 years old Clinical indication: Altered mental status/memory loss; Additional info: Subacute AMS TECHNIQUE: Imaging protocol: Computed tomography of the head without contrast. Radiation optimization: All CT scans at this facility use at least one of these dose optimization techniques: automated exposure control; mA and/or kV adjustment per patient size (includes targeted exams where dose is matched to clinical indication); or iterative reconstruction. REPORTING DATA: Count of CT and Cardiac NM exams in prior 12 months: This patient has received 4 known CTs and 0 known cardiac nuclear medicine studies in the 12 months prior to the current study. COMPARISON: No relevant prior studies available. FINDINGS: Brain: There is no evidence of acute intracranial hemorrhage, extra-axial collection or locoregional mass effect. There are scattered hypodensities in the periventricular and subcortical white matter. The appearance is nonspecific, but most likely represents chronic small vessel disease in a person of this age Cerebral ventricles: The ventricles, sulci and cisterns are normal in size and configuration for patient's age. No hydrocephalus or midline structure shift Pituitary gland and sella: Sellar/parasellar structures, craniocervical junction and orbits are unremarkable Paranasal sinuses: Visualized sinuses are unremarkable. No fluid levels. Mastoid air cells: Visualized mastoid air cells are well aerated. Bones/joints: No calvarial fracture Soft tissues: Unremarkable. IMPRESSION: No acute intracranial abnormality. No calvarial fracture.
[2023-06-05 12:20] LABS: Basophils % 0.2 % (0.1-2.0); Eosinophils # 0.1 K/mm3 (0.0-0.4); Eosinophils % 0.4 % (0.1-12.0); Hematocrit 49.1 % (37.0-47.0); Hemoglobin 15.1 g/dL (12.2-16.2); Lymphocytes # 0.7 K/mm3 (0.7-4.5); Lymphocytes % 6.2 % (10-50); Mean Corpuscular HGB Conc 30.8 g/dL (31.8-35.4); Mean Corpuscular Hemoglobin 26.8 pg (27.0-31.2); Monocytes # 0.4 K/mm3 (0.1-1.0); Monocytes % 3.5 % (1.7-9.3); Neutrophils # 10.1 K/mm3 (1.8-7.8); Neutrophils % 89.6 % (37.0-80.0); Platelet Count 342 K/mm3 (142-424); Red Blood Count 5.65 M/mm3 (4.20-5.40); Red Cell Distribution Width 15.9 % (11.5-17.5); White Blood Count 11.3 K/mm3 (4.8-10.8)
[2023-06-05 12:26] LABS: Alanine Aminotransferase 57 U/L (12-78); Albumin Level 4.1 g/dl (3.5-5.0); Alkaline Phosphatase 274 U/L (38-126); Anion Gap 25.3 mEq/L (5-15); Aspartate Amino Transferase 159 U/L (14-36); Bilirubin,Total 0.6 mg/dl (0.2-1.3); Blood Urea Nitrogen 55 mg/dl (7-17); Calcium 9.2 mg/dl (8.4-10.2); Carbon Dioxide 11 mmol/L (22.0-30.0); Chloride 100 mmol/L (98-107); Creatine Kinase 536 U/L (30-135); Creatinine Clearance Estimated 14 mL/min (50-200); Estimated Glomerular Filt Rate 11 ml/min (>60); GFR (African American) 14 ML/MIN (>60); Globulin 4.2 g/dL (1.3-3.2); Glucose 161 mg/dl (74-100); Lipase 108 U/L (23-300); Magnesium 1.7 mg/dl (1.6-2.3); Phosphorous 7.3 mg/dl (2.5-4.5); Potassium 4.3 mmoL/L (3.5-5.1); Sodium 132 mmol/L (136-145); Total Protein,Serum 8.3 g/dl (6.3-8.2)
[2023-06-05 12:41] LABS: Acetaminophen < 10 ug/ml (10-30); MANUAL DIFFERENTIAL MANUAL DIFFERENTIAL (MANUAL DIFF)
--- NOTE | 2023-06-05 13:08 | PC.NURSE ---
Assumed patient care at this time
[2023-06-05 13:23] LABS: Free T4 (Free Thyroxine) 1.53 ng/dl (0.78-2.19)
--- NOTE | 2023-06-05 13:25 | PC.NURSE ---
Bladder scanned patient: 102mL. Patient requesting more pain medication before in and out catheterization
--- NOTE | 2023-06-05 13:51 | PC.NURSE ---
speaking with hospitalist
--- NOTE | 2023-06-05 13:53 | PC.NURSE ---
Rounded on patient; call huerta within reach of patient.
--- NOTE | 2023-06-05 13:53 | PC.NURSE ---
HS aware of admission for GLORIA
--- NOTE | 2023-06-05 13:54 | PC.NURSE ---
pt assigned to room 210, admissions notified
[2023-06-05 14:15] LABS: Microscopic,Cath URINE MICROSCOPIC (MICROSCOPIC)
--- NOTE | 2023-06-05 14:15 | PC.NURSE ---
Rounded on patient; patient resting at this time. Call huerta within reach. Patient stated pain medication has helped.
--- NOTE | 2023-06-05 14:22 | PC.NURSE ---
Report called to Jayant BENJAMIN
--- NOTE | 2023-06-05 14:28 | PC.NURSE ---
pt going to med surg via stretcher
--- NOTE | 2023-06-05 14:29 | PC.NURSE ---
arrived to floor by stretcher from ED
[2023-06-05 14:40] LABS: Appearance,Urine/Cath CLEAR (Clear); Bilirubin,Cath Negative (Negative); Blood, Urine/Cath 1+ (Negative); Color,Urine/Cath YELLOW (Yellow); Glucose,Urine/Cath (UA) Negative (Negative); Ketones,Urine/Cath Negative (Negative); Leukocyte Esterase,Cath 1+ (Negative); Nitrate,Cath Negative (Negative); Protein,Urine/Cath 2+ (Negative); Specific Gravity, Urine/Cath 1.025 (1.005-1.030); Urobilinogen,Cath 0.2 EU/dl (0.2)
[2023-06-05 15:17] LABS: Bacteria,Urine/Cath 1+ /lpf; RBC,Urine/Cath Occasional # /hpf (0-3); Squamous Epithelial Ur./Cath Occasional #/hpf (0-5); Yeast,Urine/Cath 1+
[2023-06-05 15:33] LABS: Lymphocytes % 8 % (10-50); Neutrophils % 92 % (42-76); Platelet Estimate Normal; Total Cells Counted 100
[2023-06-05 15:34] LABS: Hypochromasia 1+
--- NOTE | 2023-06-05 15:45 | EXP.HP ---
History of Present Illness *Admission Date: 06/05/23 *Reason for visit:: Chief complaint: Back pain *History of present illness: This is a 78-year-old female that presents to [facility] emergency department with low back pain not resolved with home care. Her past medical history is significant for T11 compression fracture with the visit to her back pain specialist yesterday (06/04/2023). Her past medical history includes atrial fibrillation on chronic anticoagulation, hypertension, peripheral arterial disease, [id number] diabetes mellitus with neuropathy and liver cancer lost to follow-up. Patient describes sharp piercing pain to her mid back that radiates along her rib lines and restricts her activities. She reports the pain is made worse with movement and better at rest. She reports her current opioid therapy is not sufficient. She denies falls or further injury. Family is at bedside and assists with history. They report that she has missed her follow-ups with [facility] concerning her liver cancer. In the ED her laboratory evaluation identifies acute kidney injury with creatinine 3.9 (baseline 0.8). Her CPK is elevated at 536 and her LFTs are elevated with a AST to ALT ratio greater than 2.8. She is saturating appropriately on room air. [facility] Medical History (Updated 06/05/23 @ 15:08 by Zayra Cortes RN) Atrial fibrillation Falls frequently Hyperlipidemia Hypertension Liver masses Family History (Updated 06/05/23 @ 14:47 by Gaby Castillo RN) Other No significant family history Social History (Updated 06/05/23 @ 14:48 by Gaby Castlilo RN) Smoking Status: Never smoker alcohol intake: never substance use type: denies use current occupational status: retired Travel in the last 8 weeks: None Review of Systems Review of Systems Review of systems:: pertinent systems reviewed and negative unless documented below *Cardiovascular Cardiovascular: Denies chest pain at rest and Denies dyspnea *Respiratory Respiratory: Denies dyspnea *Gastrointestinal Gastrointestinal: Denies abdominal pain *Musculoskeletal Musculoskeletal: Reports as per [facility] Meds Home Medications and Allergies Home Medications Medication Instructions Recorded Confirmed Type clopidogrel 75 mg tablet 75 mg PO DAILY Platelet Inhibitor 05/30/20 06/04/23 History paroxetine HCl 40 mg tablet 40 mg PO DAILY Anxiety 05/30/20 06/04/23 History cholecalciferol (vitamin D3) 50 2,000 unit PO DAILY Supplement 09/07/22 06/04/23 History mcg (2,000 unit) capsule diltiazem HCl 30 mg tablet 30 mg PO BID High Blood Pressure 09/07/22 06/04/23 History isosorbide mononitrate 30 mg 30 mg PO DAILY High Blood Pressure 09/07/22 06/04/23 History tablet,extended release 24 hr metformin 1,000 mg 24 hr 1,000 mg PO BID Diabetes 09/07/22 06/04/23 History tablet,extended release pantoprazole 40 mg tablet,delayed 40 mg PO DAILY Acid Reflux 09/07/22 06/04/23 History release paroxetine HCl 20 mg tablet 20 mg PO DAILY Mood 09/07/22 06/04/23 History rivaroxaban 20 mg tablet (Xarelto) 20 mg PO DAILY Blood Thinner/Afib 09/07/22 06/04/23 History rosuvastatin 40 mg tablet 40 mg PO DAILY Cholesterol 09/07/22 06/04/23 History sitagliptin phosphate 100 mg 100 mg PO DAILY Diabetes 09/07/22 06/04/23 History tablet (Januvia) cyclobenzaprine 10 mg tablet 10 mg PO TIDP PRN Muscle Spasm 05/17/23 06/04/23 History lidocaine 4 % topical patch 1 patch topical Q8HP PRN Pain 05/17/23 06/04/23 History naproxen sodium 550 mg tablet 550 mg PO Q12HP PRN Pain 05/17/23 06/04/23 History hydrocodone 5 mg-acetaminophen 325 1 tab PO Q4H PRN pain #18 tabs 05/18/23 06/04/23 Rx mg tablet polyethylene glycol 3350 17 gram 17 g PO DAILYP PRN Constipation 05/18/23 06/04/23 Rx oral powder packet (Miralax) #30 ea New Prescriptions to Start Prescriptions: Allergies Allergy/AdvReac Type Severity Reaction Status Date / Time Penicillins Allergy Verif
[2023-06-05 20:03] LABS: POC Glucose,Bedside 127 (70-110)
[2023-06-06] VITALS (8 sets, daily range): BP systolic 90–121; BP diastolic 59–74; PULSE 70–102; RESP 16–18; TEMP 36.6–37.2; O2SAT 93–96; BMI 28.8
[2023-06-06 02:21] LABS: POC Glucose,Bedside 119 (70-110)
--- NOTE | 2023-06-06 04:44 | PC.NURSE ---
AT 2200 IV WAS PLACED USING U/S GUIDE. PATIENT HAD BEEN STUCK SEVERAL TIMES WITHOUT SUCCESS. RECEIVED NORCO 5/325MG PO FOR PAIN RATED M7/10 FOR CHRONIC BACK PAIN WHICH HAS MADE THE PATIENT VERY LETHARGIC. HAS BEEN INCONT X 1 LARGE AMT URINE. BRIEF WAS SATURATED . HAS NOT VOIDED SINCE. PUREWICK IN USE, NO UOP. ABDOMEN IS SOFT AND NONDISTENDED, NONTENDER. WILL TRY TO GET BLADDER SCAN TO VERIFY.
--- NOTE | 2023-06-06 05:12 | PC.NURSE ---
AT 0500 BLADDER SCAN PERFORMED AND READING WAS <125ML.
[2023-06-06 05:23] LABS: POC Glucose,Bedside 105 (70-110)
[2023-06-06 07:17] LABS: Basophils % 0.1 % (0.1-2.0); Eosinophils # 0.1 K/mm3 (0.0-0.4); Eosinophils % 0.7 % (0.1-12.0); Hematocrit 46.9 % (37.0-47.0); Hemoglobin 14.4 g/dL (12.2-16.2); Lymphocytes # 1.2 K/mm3 (0.7-4.5); Lymphocytes % 9.1 % (10-50); Mean Corpuscular HGB Conc 30.6 g/dL (31.8-35.4); Mean Corpuscular Hemoglobin 27.3 pg (27.0-31.2); Mean Corpuscular Volume 89.1 fl (81-99); Mean Platelet Volume 7.8 fl (7.4-10.4); Monocytes % 7.5 % (1.7-9.3); Neutrophils # 11.3 K/mm3 (1.8-7.8); Neutrophils % 82.7 % (37.0-80.0); Platelet Count 303 K/mm3 (142-424); Red Blood Count 5.27 M/mm3 (4.20-5.40); Red Cell Distribution Width 16.2 % (11.5-17.5); White Blood Count 13.6 K/mm3 (4.8-10.8)
[2023-06-06 07:37] LABS: Alanine Aminotransferase 49 U/L (12-78); Albumin Level 3.3 g/dl (3.5-5.0); Albumin/Globulin Ratio 0.9 (1.1-1.8); Alkaline Phosphatase 258 U/L (38-126); Anion Gap 22.3 mEq/L (5-15); Aspartate Amino Transferase 136 U/L (14-36); Bilirubin,Total 0.4 mg/dl (0.2-1.3); Blood Urea Nitrogen 60 mg/dl (7-17); Calcium 8.6 mg/dl (8.4-10.2); Carbon Dioxide 13 mmol/L (22.0-30.0); Chloride 102 mmol/L (98-107); Creatine Kinase 364 U/L (30-135); Creatinine Clearance Estimated 14 mL/min (50-200); Estimated Glomerular Filt Rate 11 ml/min (>60); GFR (African American) 13 ML/MIN (>60); Globulin 3.6 g/dL (1.3-3.2); Glucose 111 mg/dl (74-100); Magnesium 2.2 mg/dl (1.6-2.3); Phosphorous 7.3 mg/dl (2.5-4.5); Potassium 4.3 mmoL/L (3.5-5.1); Sodium 133 mmol/L (136-145); Total Protein,Serum 6.9 g/dl (6.3-8.2)
[2023-06-06 08:43] LABS: INR 1.33 (0.9-1.1); Prothrombin Time 14.1 seconds (10.1-12.5)
--- NOTE | 2023-06-06 11:01 | EXP.PN ---
Subjective *Date: 06/06/23 *Time: 11:01 Interval history: Patient is seen and evaluated at bedside today. Nursing staff accompany me for her evaluation. The patient reports adequate pain control. Nursing staff report that she remains afebrile with stable vital signs and saturating appropriately on room air. We have reviewed and discussed her morning labs. I have personally interpreted her labs as follows: WBC 13.6, hemoglobin of 14 with platelets 303. INR 1.33. Magnesium 2.2. Hemoglobin A1c 7.0%. Sodium 133, potassium 4.3, chloride 102, CO2 13, BUN 60, creatinine is 4.0, glucose 111. Exam Data for Last 24 hours Vital signs and Labs for Last 24 Hours: Temp Pulse Resp BP Pulse Ox O2 Del Method 97.9 F 82 18 121/62 96 Room Air 06/06/23 07:20 06/06/23 08:00 06/06/23 07:20 06/06/23 07:20 06/06/23 07:20 06/06/23 09:00 Laboratory Results - last 24 hr 06/05/23 12:00: WBC 11.3 H, RBC 5.65 H, Hgb 15.1, Hct 49.1 H, MCV 87.0, MCH 26.8 L, MCHC 30.8 L, RDW 15.9, Plt Count 342, MPV 8.0, Neut % (Auto) 89.6 H, Lymph % (Auto) 6.2 L, [place] % (Auto) 3.5, Eos % (Auto) 0.4, Baso % (Auto) 0.2, Neut # (Auto) 10.1 H, Lymph # (Auto) 0.7, [place] # (Auto) 0.4, Eos # (Auto) 0.1, Baso # (Auto) 0.0, Total Counted 100, Neutrophils % (Manual) 92 H, Lymphocytes % (Manual) 8 L, Platelet Estimate Normal, Hypochromasia 1+, Sodium 132 L, Potassium 4.3, Chloride 100, Carbon Dioxide 11 L, Anion Gap 25.3 H, BUN 55 H, Creatinine 3.90 H, Estimated Creat Clear 14, Estimated GFR 11 L*, Est GFR ( Amer) 14 L*, Glucose 161 H, Calcium 9.2, Phosphorus 7.3 H, Magnesium 1.7, Total Bilirubin 0.6, AST 159 H, ALT 57, Alkaline Phosphatase 274 H, Total Creatine Kinase 536 H*, Total Protein 8.3 H, Albumin 4.1, Globulin 4.2 H, Albumin/Globulin Ratio 1.0 L, Lipase 108, TSH 2.50, Free T4 1.53, Acetaminophen < 10 L 06/05/23 14:08: Urine Color Yellow, Urine Appearance Clear, Urine pH 5.0, Ur Specific [place] 1.025, Urine Protein 2+, Urine Glucose (UA) Negative, Urine Ketones Negative, Urine Blood 1+, Urine Nitrate Negative, Urine Bilirubin Negative, Urine Urobilinogen 0.2, Ur Leukocyte Esterase 1+ A, Urine RBC Occasional, Urine WBC 10-20 A, Ur Squamous Epith Cells Occasional, Amorphous Sediment Cancelled, Urine Bacteria 1+, Urine Mucus Cancelled, Urine Yeast 1+ 06/05/23 17:15: POC Glucose 127 H 06/05/23 20:43: POC Glucose 119 H 06/06/23 05:16: POC Glucose 105 06/06/23 07:00: WBC 13.6 H, RBC 5.27, Hgb 14.4, Hct 46.9, MCV 89.1, MCH 27.3, MCHC 30.6 L, RDW 16.2, Plt Count 303, MPV 7.8, Neut % (Auto) 82.7 H, Lymph % (Auto) 9.1 L, [place] % (Auto) 7.5, Eos % (Auto) 0.7, Baso % (Auto) 0.1, Neut # (Auto) 11.3 H, Lymph # (Auto) 1.2, [place] # (Auto) 1.0, Eos # (Auto) 0.1, Baso # (Auto) 0.0, Sodium 133 L, Potassium 4.3, Chloride 102, Carbon Dioxide 13 L, Anion Gap 22.3 H, BUN 60 H, Creatinine 4.00 H, Estimated Creat Clear 14, Estimated GFR 11 L*, Est GFR ( Amer) 13 L*, Glucose 111 H D, Calcium 8.6, Phosphorus 7.3 H, Magnesium 2.2 D, Total Bilirubin 0.4, AST 136 H, ALT 49, Alkaline Phosphatase 258 H, Total Creatine Kinase 364 H D, Total Protein 6.9, Albumin 3.3 L D, Globulin 3.6 H, Albumin/Globulin Ratio 0.9 L 06/06/23 08:00: PT 14.1 H, INR 1.33 H, Hemoglobin A1c 7.0 H I & O for Last 24 hours: Intake & Output 06/03/23 06/04/23 06/05/23 06/06/23 23:59 23:59 23:59 23:59 Intake Total 240 / 240 1170 / 1170 Output Total 0 / 0 0 / 0 Balance 240 / 240 1170 / 1170 Weight 73.652 kg 76.612 kg Constitutional Constitutional: no acute distress, obese, chronically ill appearing and cooperative *Routine HEENT Exam Head: Present normocephalic Eye: Present EOMI and PERRL ENT: Present mucous membranes moist *Routine Neck Exam Neck: Present supple, full ROM and trachea midline; Absent lymphadenopathy *Routine Respiratory Exam Respiratory: Present rhonchi, normal respiratory effort and symmetric chest movement *Routine Cardiovascular Exam Cardiovascular: Present RRR, Normal S1 and Normal S2;
[2023-06-06 11:04] LABS: POC Glucose,Bedside 149 (70-110)
--- NOTE | 2023-06-06 11:19 | HMH.ITSTN ---
I spoke with nurse Luis, asked if Ultrasound that was entered by DR Gates was for tomorrow since it was placed as a routine order. He was unsure but would let us know in radiology if this needed to be done today.
--- NOTE | 2023-06-06 11:59 | HMH.PTEV ---
Physical Therapy Evaluation Rehab PT IP Evaluation Start: 06/05/23 15:57 Freq: ONCE Status: Active Protocol: Document 06/06/23 11:41 [facility] (Rec: 06/06/23 11:59 KIM [id number]) Subjective/History History History Pt is a 78 y/o female who presented to [facility] ED on 06/05/23 with complaint of back pain. Per history & physical note, past medical history is significant for T11 compression fracture with the visit to her back pain specialist yesterday (2022). Patient describes sharp piercing pain to her mid back that radiates along her rib lines and restricts her activities. She reports the pain is made worse with movement and better at rest. She reports her current opioid therapy is not sufficient. She denies falls or further injury. In the ED her laboratory evaluation identifies acute kidney injury with creatinine 3.9 (baseline 0.8). Her CPK is elevated at 536 and her LFTs are elevated with a AST to ALT ratio greater than 2.8. She is saturating appropriately on room air. Medical History: Atrial fibrillation, chronic anticoagulation, PAD, non- insulin dependent diabetes mellitus with neuroapthy, falls frequently, hyperlipidemia, hypertension, liver cancer/masses Subjective Subjective Pt moaning You're hurting me, you're hurting my back upon arrival to the room with the pt lying supine in bed and no one else noted to be present. Pt reports she is having a lot of pain in her back since she fell, unable to identify when she fell. Pt does states
[2023-06-06 16:16] LABS: POC Glucose,Bedside 141 (70-110)
[2023-06-06 18:47] LABS: Microscopic, Urine URINE MICROSCOPIC (MICROSCOPIC)
[2023-06-06 18:50] LABS: Appearance,Urine SL CLOUDY (Clear); Bilirubin,Urine Negative (Negative); Blood, Urine 1+ (Negative); Color,Urine YELLOW (Yellow); Glucose,Urine (UA) Negative (Negative); Ketones,Urine Negative (Negative); Leukocyte Esterase,Urine TRACE (Negative); Nitrate,Urine Negative (Negative); PH,Urine 5.5 (5.0-8.5); Protein,Urine 2+ (Negative); Specific Gravity, Urine 1.025 (1.005-1.030); Urobilinogen,Urine 0.2 EU/dl (0.2)
[2023-06-06 19:04] LABS: Amorphous Sediment,Urine Trace /lpf; Bacteria,Urine 3+ /lpf; RBC,Urine Occasional #/hpf (0-3); WBC,Urine 20-50 #/hpf (0-3)
[2023-06-06 20:39] LABS: POC Glucose,Bedside 132 (70-110)
[2023-06-07] VITALS (9 sets, daily range): BP systolic 96–106; BP diastolic 45–66; PULSE 58–88; RESP 16–20; TEMP 36.4–36.9; O2SAT 91–97; BMI 28.8
--- NOTE | 2023-06-07 04:45 | PC.NURSE ---
Pt was noted to have visual hallucinations around 2100 this shift. Gloria UNDERWOOD was made aware. PRN flexeril was ordered but not needed. Pt has slept most of shift since this occurrence. Pt A&O to person, and time. Pt complained of back pain this shift and was medicated with morphine and norco per NOV. Pt has had no other complaints. Miller cath in place draining clear/dark yellow urine. Pt saturating well on RA. Pt NSR and sinus arrhythmia on tele.
[2023-06-07 06:01] LABS: POC Glucose,Bedside 132 (70-110)
[2023-06-07 06:50] LABS: Basophils % 0.1 % (0.1-2.0); Eosinophils # 0.1 K/mm3 (0.0-0.4); Lymphocytes # 0.8 K/mm3 (0.7-4.5); Monocytes # 0.5 K/mm3 (0.1-1.0); Red Cell Distribution Width 16.2 % (11.5-17.5)
[2023-06-07 06:58] LABS: Eosinophils % 0.9 % (0.1-12.0); Hematocrit 42.2 % (37.0-47.0); Mean Corpuscular HGB Conc 30.9 g/dL (31.8-35.4); Mean Corpuscular Hemoglobin 26.8 pg (27.0-31.2); Mean Corpuscular Volume 86.8 fl (81-99); Mean Platelet Volume 8.3 fl (7.4-10.4); Platelet Count 262 K/mm3 (142-424); Red Blood Count 4.86 M/mm3 (4.20-5.40); White Blood Count 8.3 K/mm3 (4.8-10.8)
[2023-06-07 07:03] LABS: Alanine Aminotransferase 52 U/L (12-78); Albumin/Globulin Ratio 0.9 (1.1-1.8); Alkaline Phosphatase 246 U/L (38-126); Anion Gap 19.9 mEq/L (5-15); Aspartate Amino Transferase 147 U/L (14-36); Bilirubin,Total 0.3 mg/dl (0.2-1.3); Blood Urea Nitrogen 64 mg/dl (7-17); Calcium 7.9 mg/dl (8.4-10.2); Carbon Dioxide 11 mmol/L (22.0-30.0); Chloride 105 mmol/L (98-107); Creatinine Clearance Estimated 13 mL/min (50-200); Estimated Glomerular Filt Rate 9 ml/min (>60); GFR (African American) 11 ML/MIN (>60); Globulin 3.3 g/dL (1.3-3.2); Glucose 130 mg/dl (74-100); Potassium 3.9 mmoL/L (3.5-5.1); Sodium 132 mmol/L (136-145); Total Protein,Serum 6.3 g/dl (6.3-8.2)
[2023-06-07 08:05] LABS: Ammonia 23 umol/L (9-30)
--- NOTE | 2023-06-07 09:51 | HMH.OTEV ---
OT Inpatient Evaluation Rehab OT IP Evaluation Start: 06/05/23 15:57 Freq: ONCE Status: Active Protocol: Document 06/07/23 09:44 [facility] (Rec: 06/07/23 09:50 [facility] [id number]) Rehab OT IP Assessment Subjective History Pt is a 78 y/o female who presented to [facility] ED on 06/05/23 with complaint of back pain. Per history & physical note, past medical history is significant for T11 compression fracture with the visit to her back pain specialist on 06/04/2023. Pt had recently completed a short term rehab stay at a SNF for 17 days. Pt then returned home for ~2-3 days and demonstrated a significant decline in mental and functional status per family. Family reports prior to her back fx, pt lived at home with her . She was completely independent with all ADLs and IADLs. She also still drove. Medical History: Atrial fibrillation, chronic anticoagulation, PAD, non- insulin dependent diabetes mellitus with neuroapthy, falls frequently, hyperlipidemia, hypertension, liver cancer/masses Subjective I'm Gaby Redd. Objective Patient Orientation Person Upper Extremity Gross ROM Min Limitation <25% Shoulder ROM Limitations Muscle Weakness Elbow ROM Limitations Muscle Weakness Wrist Limitations of Range of Motion Muscle Weakness Bed Mobility bed mobility-scooting,bed mobility - supine/sit,bed mobility - rolling Assist Level Total/Dependent (100%) Rehab OT IP prob,goals,plan Problems Date of Evaluation: 06/07/23 OT IP Problems Bed Mobility,Transfers,Balance ,Self care,Safety Rehab Potential Rehab Potential Fair Equipment Needs Assistive Devices Rolling / Wheeled Walker Plan OT intervention Plan Bed Mobility,Transfers,Balance ,Self care,Safety,Therapeutic
--- NOTE | 2023-06-07 10:01 | SW/DCPLANNER ---
Addendum entered by Aleida Vitale 06/08/23 08:48: Yelitza Bentley w/ [facility] stated the plan for this patient to discharge home today and all equipment will be delivered to patient's home this AM. Addendum entered by Aleida Vitale 06/07/23 16:26: Dr Muñoz engaged in discussion w/ family regarding comfort care. Patient's family including her are agreeable for [facility] to come speak w/ family and evaluate patient. Patient information has been faxed to [facility] and have asked they evaluate patient this evening. I will continue to follow up w/ patient, family, MD and [facility]. Original Note: PT/OT evaluated patient and recommended SNF level of care. I spoke w/ patient's granddaughter in the room this AM to discuss discharge plans due to patient not being able to communicate. Granddaughter stated that she is going to call and speak w/ family and her patient's oldest child contact me regarding discharge plans for this patient. I did update granddaughter the placement is recommended at this time. Patient was recently placed at [facility] for 17 days and discharged back home once insurance days were completed. I will continue to follow up w/ patient/family and MD.
--- NOTE | 2023-06-07 11:04 | US_ITS ---
FINAL REPORT CLINICAL HISTORY: Liver Cancer, Cirrhosis FINDINGS: Sonographic images of the right upper quadrant were obtained. The pancreas is partially obscured.The liver has coarsened echotexture consistent with cirrhosis. Gallbladder is incompletely distended which accentuates the gallbladder wall. Common duct measures 8 mm. No stone is identified. IMPRESSION: Coarsened echotexture of the liver consistent with underlying cirrhosis. Mild to moderate dilatation of the common duct without definite choledocholithiasis. Reviewed, Interpreted and Dictated by Naveen Leonard MD Transcribed by Nisreen Nuñez Authenticated and [facility]
[2023-06-07 11:26] LABS: POC Glucose,Bedside 120 (70-110)
--- NOTE | 2023-06-07 13:06 | CA_ITS ---
APPROVED REPORT EXAM: Comprehensive 2D, Doppler, and color-flow Echocardiogram Plaster Mechanic: Ryann Hsu RT(R) Ht: 5 ft 4 in Wt: 169lbs BSA: 1.82 BP: 121/62 mmHg Indications: murmur, HTN, DM, hyperlipidemia, possible 2D Dimensions LVOT 2.07 cm (M/F) 1.5-2.5 LA Volume 85.90 mL LA Volume Index 47.20 mL/m2 (M/F) 16-34 M-Mode Dimensions RVDd 2.36 cm (0.9-2.6) LA Diam 4.48 cm (1.9-4.0) LVDd 4.26 cm (3.5-5.7) Ao Diam 3.05 cm (2.0-3.7) LVDs 3.08 cm (3.5-5.7) IVSd 1.18 cm (0.6-1.1) PWd 1.00 cm (0.6-1.1) EF (Teich) 54.10% FS 27.70% EDV (Teich) 81.30 mL ESV (Teich) 37.30 mL LV Diastology E Decel Time 290.00 (160-240 msec) E/A Ratio 1.1 MED E' 6.00 (< 7 cm/sec) E'/MED E' Ratio 22.02 (>14) LAT E' 9.10 (<10 cm/sec) E/LAT E' Ratio 14.52 (>14) Aortic Valve LVOT Max 138.00 (70-110 cm/s) LVOT VTI 28.24 cm AoV Peak Moustapha. 395.00 (50-130 cm/s) AO Peak GR. 62.40 mmHg AO Mean GR. 30.60 (<5 mmHg) AO VTI 71.00 (18-25 cm) RUSS (VTI) 1.34 (2.5-4.5 cm2) Mitral Valve MV E Max Moustapha. 132.00 (40-130 cm/s) MV A Velocity 119.00 (40-130 cm/s) E/A Ratio 1.11 MV Decel. Time 290.00 (160-240 ms) MV PHT 85.00 ms Left Ventricle The left ventricle is normal size. The left ventricular systolic function is normal. The left ventricular ejection fraction is within the normal range. There is increased LV wall thickness. There is normal LV segmental wall motion. Grade II diastolic dysfunction is present. LVEF is 60% Right Ventricle The right ventricle is mildly dilated. The right ventricular systolic function is normal. Atria Left atrium is moderately dilated. The right atrium size is normal. Aortic Valve The aortic valve is severely thickened. Moderate to severe aortic stenosis. RUSS is 1.3 cm2. Peak velocity is 4 m/s. Mean AV gradient is 32 mmHg, max AV gradient is 65 mmHg. DI=0.36. SVi=50 mL/m2. Moderate aortic insufficiency. Mitral Valve Mild mitral annular calcification. The mitral valve is mildly thickened. Mild mitral stenosis. Mean MV gradient is 6 mmHg (HR 79 bpm). Mild mitral regurgitation. Tricuspid Valve The tricuspid valve leaflets are thin and pliable. Mild tricuspid regurgitation. RVSP is 35 mmHg + RA pressure. Pulmonic Valve The pulmonary valve is normal in structure. Mild pulmonic regurgitation. Great Vessels The aortic root is normal in size. The ascending aorta is normal in size. The IVC is not well visualized. Pericardium There is no pericardial effusion. Other Information Study Quality: Fair Conclusion Normal biventricular systolic function Grade II diastolic dysfunction. Mild RV dilation Moderate LA enlargement Moderate to severe Moderate AI Mild MS, mild MR Mild TR Elevated RVSP 35 mmHg + RA pressure Further evaluation of the aortic valve is recommended to distinguish if moderate vs. severe . A cardiac calcium score CT to evaluate severity of aortic valve calcification (AVC) is recommended as initial non-invasive measure. Electronically signed by : Melody Jones MD 06/11/2023 20:40:20
--- NOTE | 2023-06-07 15:53 | EXP.ACUTE.PN ---
Subjective *Date: 06/07/23 *Time: 19:46 Interval history: Ms. Herbert has had minimal response to exam today. Attempts to answer questions but they are incomprehensible. Can tell me her name only. Does not know where she is, why she is at the hospital. Unable to make consistent eye contact. Appears agitated and responding to internal stimuli, grasping at sheets. Appears in significant pain. Responds to pain medication intermittently. On room air with appropriate saturations. Afebrile. No p.o. intake. Medical Exam Vital signs and Labs for Last 24 Hours: Vital Signs Temp Pulse Pulse Resp BP Pulse Ox O2 Del Method 06/07/23 12:00 80 06/07/23 12:36 98.4 F 88 20 104/45 L 91 L Room Air 06/07/23 10:57 Room Air 06/07/23 09:00 Room Air 06/07/23 08:00 Room Air 06/07/23 08:09 70 06/07/23 08:00 97.7 F 72 16 98/50 L 97 Room Air 06/07/23 06:45 Room Air 06/07/23 05:05 80 06/07/23 04:44 Room Air 06/07/23 04:00 97.7 F 75 16 97/49 L 94 L Room Air 06/07/23 03:00 Room Air 06/07/23 01:00 Room Air 06/07/23 00:00 80 06/07/23 00:00 97.6 F 58 L 16 96/53 L 91 L Room Air 06/06/23 23:00 Room Air 06/06/23 20:00 Room Air 06/06/23 21:00 Room Air 06/06/23 20:00 70 06/06/23 19:58 98.4 F 83 16 102/74 L 93 L Room Air 06/06/23 18:51 Room Air 06/06/23 16:00 74 06/06/23 16:45 Room Air Intake and Output 06/06/23 06/07/23 06/07/23 23:59 07:59 15:59 Intake Total 1548 / 2958 604 / 604 Output Total 900 / 900 300 / 300 0 / 300 Balance 648 / 2058 304 / 304 0 / 304 Intake: Intake, Oral Amount 120 / 480 Intake, Total IV Amount 604 / 604 0.9 % Sodium Chloride 1000ML 1, 604 / 604 000 ml @ 50 mls/hr IV .Q20H [facility] Rx#:[id number] Infusion Intake 1428 / 1428 0.9 % Sodium Chloride 1000ML 1, 1428 / 1428 000 ml @ 50 mls/hr IV .Q20H [facility] Rx#:[id number] Output: Output, Urine Amount 900 / 900 300 / 300 0 / 300 Other: Number of Voids 0 Number of Unmeasured Voids 0 0 0 Weight 76.748 kg Patient Weight 06/07/23 23:59 Weight 76.748 kg Laboratory Results - last 24 hr 06/06/23 16:07: POC Glucose 141 H 06/06/23 18:40: Urine Color Yellow, Urine Appearance Sl cloudy, Urine pH 5.5, Ur Specific [place] 1.025, Urine Protein 2+, Urine Glucose (UA) Negative, Urine Ketones Negative, Urine Blood 1+, Urine Nitrate Negative, Urine Bilirubin Negative, Urine Urobilinogen 0.2, Ur Leukocyte Esterase Trace, Urine RBC Occasional, Urine WBC 20-50, Ur Squamous Epith Cells 5-10, Amorphous Sediment Trace, Urine Bacteria 3+ 06/06/23 20:24: POC Glucose 132 H 06/07/23 05:45: POC Glucose 132 H 06/07/23 06:26: WBC 8.3 D, RBC 4.86, Hgb 13.0, Hct 42.2, MCV 86.8, MCH 26.8 L, MCHC 30.9 L, RDW 16.2, Plt Count 262, MPV 8.3, Neut % (Auto) 84.0 H, Lymph % (Auto) 9.0 L, [place] % (Auto) 6.0, Eos % (Auto) 0.9, Baso % (Auto) 0.1, Neut # (Auto) 7.0, Lymph # (Auto) 0.8, [place] # (Auto) 0.5, Eos # (Auto) 0.1, Baso # (Auto) 0.0, Sodium 132 L, Potassium 3.9, Chloride 105, Carbon Dioxide 11 L, Anion Gap 19.9 H, BUN 64 H, Creatinine 4.60 H, Estimated Creat Clear 13, Estimated GFR 9 L*, Est GFR ( Amer) 11 L*, Glucose 130 H, Calcium 7.9 L, Total Bilirubin 0.3, AST 147 H, ALT 52, Alkaline Phosphatase 246 H, Ammonia 23, Total Protein 6.3, Albumin 3.0 L, Globulin 3.3 H, Albumin/Globulin Ratio 0.9 L 06/07/23 11:18: POC Glucose 120 H I & O for Labs for Last 24 Hours: Intake & Output 06/04/23 06/05/23 06/06/23 06/07/23 23:59 23:59 23:59 23:59 Intake Total 240 / 240 2958 / 2958 604 / 604 Output Total 0 / 0 900 / 900 300 / 300 Balance 240 / 240 2058 / 2058 304 / 304 Weight 73.652 kg 76.612 kg 76.748 kg Microbiology Reports for the Last 24 Hours: Microbiology 06/05/23 14:08 Urine,Catheterized Urine Culture - Preliminary Constitutional: Present mild distress, average body
--- NOTE | 2023-06-07 15:56 | P.EN_ITS ---
Advance care planning note: Active diagnosis: Burst fracture T11 vertebrae, hepatocellular carcinoma, acute renal failure, severe aortic stenosis, frequent falls and decline, intractable p ain. The patient's active diagnoses are of sufficient risk that focused discussion on advanced care planning is indicated in order to allow the patient to thoughtfully consider personal goals of care; and, if situations arise that prevent the ability to personally give input, to ensure appropriate representation of their personal desires through documentation or informed surrogate decision makers. Discussion: Persons present and participating in discussion: Extensive family including sons: Luis Feliciano; daughters including: Jayla, Sadia, Chloe; Bryan, and several grandchildren. In [facility] Discussion: Extensive discussion about patient's decline over the past 6 to 8 weeks, progression of her liver cancer, significant aortic stenosis, worsening renal failure, and goals of care for patient's treatment given family's concern with her intractable pain that is untreatable given the nature of the burst fracture of her vertebrae. Reviewed patient's chart and diagnoses over the past 6 to 9 months including work-up performed at through [facility] chart review. Discussed how she has competing life-limiting diagnoses and since her initial fall with development of back pain, she has had a rather rapid decline. At this point there is no intervention for her back and she is essentially bedbound due to pain. She is nonoperative candidate because of her cancer and aortic stenosis. Due to NSAID use and dehydration, she has developed renal failure that is not responding to fluid resuscitation during this admission. Family is most concerned with keeping patient comfortable and addressing her pain. Discussed benefits and downsides of transitioning to hospice care. Family elected to proceed with hospice and taking the patient home to focus on quality and comfort in treating her pain and surrounding her with family. Time spent: Total time spent [id number] in education and discussion directly related to advance care plannin minutes Lacho Muñoz 06/08/2023 3:10-3:35pm
--- NOTE | 2023-06-07 15:58 | EXP.PAIN.SOA ---
[facility] Pain Management SOAP Note Subjective:: Patient is a pleasant 78-year-old female who is being consulted on the [facility] floor related to recent admittance for acute kidney injury. We are currently treating the patient for acute compression fracture of T11, mid back pain. Patient was scheduled for a kyphoplasty for this coming Wednesday however due to her recent hospitalization this has been put on hold. Patient is currently unresponsive during this hospitalization. Patient's family does state that she was hospitalized due to acute kidney injury however she did have multiple things going on including her cancer. Patient's family does state that Dr. Muñoz did discuss with them that her compression fracture did basically explode and that he did not think the kyphoplasty was still a possibility. Her family did state that there was talk of getting her put on hospice due to the multiple things going on. Review of Systems: Patient is unresponsive and unable to do a review of systems related to her current condition Objective:: Physical Exam: Patient is unresponsive and unable to do a physical exam related to her current condition FINDINGS: Bones/joints: Diffuse osteopenia. There is an acute/subacute complete burst fracture of T11 vertebra with approximate 25 % height loss. Mild retropulsion of the posterior cortex into the spinal canal noted. Vertebral alignment is maintained. Facet joints are aligned Soft tissues: Unremarkable. Vasculature: Hyperattenuating material in the coronary tree likely a combination of vascular stents and atherosclerosis. Lymph nodes: Calcified mediastinal and hilar lymph nodes suggest prior granulomatous exposure. IMPRESSION: There is an acute/subacute complete burst fracture of T11 vertebra with approximate 25 % height loss. Mild retropulsion of the posterior cortex into the spinal canal noted. Thoracic spine MRI is recommended for better evaluation of the epidural space and spinal cord. Assessment:: Acute compression fracture T11, mid back pain Plan:: I have counseled the patients family due to her recent hospitalization related to acute kidney injury that it does take precedent over her compression fracture. I did consult Dr. Muñoz and review over her thoracic CT imaging and worsening fracture that has gone into a burst fracture. Patient is currently unstable related to her kidney function as well as her aortic stenosis and continuing cancer. I have gone back in and discussed with the family that due to the change of her fracture we are unable to have the kyphoplasty as a option for treatment. Patient's vertebra no longer has the structure to hold the cement and may cause additional symptoms if it went into areas unintended. I have counseled the patient's family that we can do thoracic epidurals at this area for her chronic pain if she becomes more responsive. We will continue to monitor her progress while she is hospitalized and will follow-up with family following her discharge. I have counseled the patient's family to contact us with any questions or concerns and keep us updated on her condition. Patient has been instructed to contact the clinic with any concerns before the next appointment. Dr. Pennington has reviewed this note and agrees with this plan of care. This note was dictated using voice recognition software and make contain errors or omissions. [facility] Disclaimer: The information contained in this section may have been updated after the patient was seen, as this information can be updated by other users. Medical History (Updated 06/07/23 @ 15:54 by Lacho Muñoz MD) Atrial fibrillation Falls frequently Hyperlipidemia Hypertension Liver masses Family History (Updated 06/05/23 @ 14:47 by Gaby Castillo RN) Other No significant family history Social History (Updated 06/05/23 @ 14:48 by Gaby
--- NOTE | 2023-06-07 16:41 | PC.NURSE ---
Meryl Allen from hospice will be here in 45 min.
[2023-06-07 16:54] LABS: POC Glucose,Bedside 139 (70-110)
--- NOTE | 2023-06-07 17:59 | PC.NURSE ---
Hospice is speaking with family. Family wants pt to go home with hospice. She has remained alert to self. She is currently sleeping at this time. Has c/o pain to her back with movement this shift. Medicated per nov. Family has remained at bedside.
[2023-06-07 20:32] LABS: POC Glucose,Bedside 125 (70-110)
[2023-06-08 04:00] VITALS: BMI 30.7
[2023-06-08 05:17] LABS: POC Glucose,Bedside 112 (70-110)
--- NOTE | 2023-06-08 05:35 | PC.NURSE ---
FSBS 112 THIS AM, NO INSULIN REQUIRED. HAS RESTED QUIETLY ON THIS SHIFT. TURNED Q 2 HRS . F/C TO [facility]. URINE CLEAR YELLOW. GRANDDAUGHTER AT BEDSIDE.
[2023-06-08 06:45] LABS: Basophils % 0.2 % (0.1-2.0); Eosinophils # 0.1 K/mm3 (0.0-0.4); Eosinophils % 1.3 % (0.1-12.0); Hematocrit 39.4 % (37.0-47.0); Hemoglobin 12.2 g/dL (12.2-16.2); Lymphocytes # 0.5 K/mm3 (0.7-4.5); Mean Corpuscular Hemoglobin 26.9 pg (27.0-31.2); Mean Corpuscular Volume 86.8 fl (81-99); Mean Platelet Volume 8.1 fl (7.4-10.4); Monocytes # 0.5 K/mm3 (0.1-1.0); Monocytes % 6.5 % (1.7-9.3); Neutrophils # 6.5 K/mm3 (1.8-7.8); Platelet Count 243 K/mm3 (142-424); Red Blood Count 4.54 M/mm3 (4.20-5.40); Red Cell Distribution Width 16.4 % (11.5-17.5); White Blood Count 7.6 K/mm3 (4.8-10.8)
[2023-06-08 06:50] LABS: MANUAL DIFFERENTIAL MANUAL DIFFERENTIAL (MANUAL DIFF)
[2023-06-08 07:02] LABS: Alanine Aminotransferase 43 U/L (12-78); Albumin Level 2.7 g/dl (3.5-5.0); Albumin/Globulin Ratio 0.8 (1.1-1.8); Alkaline Phosphatase 274 U/L (38-126); Anion Gap 20.7 mEq/L (5-15); Aspartate Amino Transferase 101 U/L (14-36); Bilirubin,Total 0.3 mg/dl (0.2-1.3); Blood Urea Nitrogen 63 mg/dl (7-17); Calcium 8.1 mg/dl (8.4-10.2); Carbon Dioxide 12 mmol/L (22.0-30.0); Chloride 106 mmol/L (98-107); Creatinine Clearance Estimated 13 mL/min (50-200); Estimated Glomerular Filt Rate 9 ml/min (>60); GFR (African American) 11 ML/MIN (>60); Globulin 3.3 g/dL (1.3-3.2); Glucose 124 mg/dl (74-100); Potassium 3.7 mmoL/L (3.5-5.1); Sodium 135 mmol/L (136-145)
[2023-06-08 07:28] LABS: Lymphocytes % 5 % (10-50); Monocytes % 4 % (2-9); Neutrophils % 89 % (42-76); Total Cells Counted 100
[2023-06-08 07:29] LABS: Platelet Estimate Normal; RBC Morphology Normal
--- NOTE | 2023-06-08 07:44 | EXP.DC.SUM ---
General Admission date:: 06/05/23 Discharge date: 06/08/23 HPI HPI HPI: This is a 78-year-old female that presents to [facility] emergency department with low back pain not resolved with home care. Her past medical history is significant for T11 compression fracture with the visit to her back pain specialist yesterday (06/04/2023). Her past medical history includes atrial fibrillation on chronic anticoagulation, hypertension, peripheral arterial disease, [id number] diabetes mellitus with neuropathy and liver cancer lost to follow-up. Patient describes sharp piercing pain to her mid back that radiates along her rib lines and restricts her activities. She reports the pain is made worse with movement and better at rest. She reports her current opioid therapy is not sufficient. She denies falls or further injury. Family is at bedside and assists with history. They report that she has missed her follow-ups with [facility] concerning her liver cancer. In the ED her laboratory evaluation identifies acute kidney injury with creatinine 3.9 (baseline 0.8). Her CPK is elevated at 536 and her LFTs are elevated with a AST to ALT ratio greater than 2.8. She is saturating appropriately on room air. Hospital Course Hospital Course Hospital Course: 78-year-old female that presents to the emergency department with concerns of back pain recently released from custodial facility after being there 20 days. She went to visit with her back pain provider yesterday regarding kyphoplasty and further pain control recommendations. Her past medical history significant for atrial fibrillation on chronic anticoagulation, peripheral artery disease, diabetes with neuropathy and liver cancer with no follow-up since January 2023 at [facility]. Patient's condition has declined over the past few weeks. Goals of care discussion with family today. Family wishes to keep patient comfortable. Given her competing illnesses with hepatocellular carcinoma, moderate to severe aortic stenosis, renal failure, burst fracture of T11 vertebrae, there are no good treatments moving forward for her. Discussed hospice consult today, family interested in moving forward with hospice care to focus on quality of life and comfort. Problems addressed as follows: Acute kidney injury Acute renal failure Baseline creatinine 0.8, Elevated on admission, worsened during hospitalization with increase to 4.7 by day of discharge. Suspect secondary to NSAIDs, dehydration, prerenal state. No improvement with IV fluid resuscitation. Catheter placed during admission. Sent home with catheter in place for hospice. [facility] ordered for the morning. Intractable back pain Burst fracture T11 vertebrae Recent outpatient evaluation noted, patient was not participating well with therapy at rehab. Worsening fracture on imaging. Consulted pain management, discussed case today with pain management. Not a candidate for kyphoplasty given burst fracture of vertebrae. Causing significant pain, unable to treat condition, family wants to focus on pain control and comfort measures. Tolerating hydrocodone and morphine during admission. Transition to oral roxanol at discharge. Diabetes mellitus with neuropathy Routine blood sugar monitoring during admission. Hemoglobin A1c 7.0%. DC insulin therapy due to risk for hypoglycemia and minimal PO intake. Liver cancer Follows with [facility]. Last therapy and follow-up in January. Ultrasound showing persistent lesions. Has had progression of cancer even after initiating brachytherapy. Meld of 26 on admission. Given patient's worsening health conditions she is not stable enough to consider further treatment. Aortic stenosis Significant murmur on exam, severe stenosis on preliminary echo. After significant goals of care discussion, plan to discharge to hospice for comfort measures and quality of life. Given diagnoses above, no further treatment options avai
[2023-06-08 08:00] VITALS: O2SAT 94
[2023-06-08 09:40] VITALS: BP 113/50; PULSE 83; RESP 16; TEMP 36.8; O2SAT 94
[2023-06-08 10:26] LABS: POC Glucose,Bedside 124 (70-110)
[2023-06-10 06:13] LABS: Cystatin C 3.14 mg/L (0.78-1.15)
== END 2023-06-08 15:31 | disposition hospice, home (50) | DRG 683 ==
LOC: ER 12:29 → 2ND 14:02
PROVIDERS: Internal Medicine Adolescent Medicine; Admitting Provider Family Medicine; Emergency Provider Emergency Medicine; Visit Provider Family Medicine
DX: N17.9 Acute kidney failure, unspecified (principal); C22.0 Liver cell carcinoma; I48.11 Longstanding persistent atrial fibrillation; S22.081A Stable burst fracture of T11-T12 vertebra, initial encounter for closed fracture; E11.40 Type 2 diabetes mellitus with diabetic neuropathy, unspecified; R16.0 Hepatomegaly, not elsewhere classified; E86.0 Dehydration; E78.5 Hyperlipidemia, unspecified; X58.XXXA Exposure to other specified factors, initial encounter; E11.51 Type 2 diabetes mellitus with diabetic peripheral angiopathy without gangrene; I35.0 Nonrheumatic aortic (valve) stenosis; Z79.899 Other long term (current) drug therapy
CPT/HCPCS: 36415; 70450; 72125; 72128; 72131; 72192; 76705; 80053; 80329; 81001; 82140; 82550; 82610; 82962; 83036; 83690; 83735; 84100; 84439; 84443; 85007; 85025; 85610; 87086; 87088; 93306; 97162; 97167; 97530; 99212; 99285; G0463; J0696; J3475